=== PATIENT | female | born 1945 | race Caucasian/White ===

== ENCOUNTER → 2017-12-06 08:31 | Outpatient (CLI) | payer MEDICARE, SELFPAY | PROVIDERS: Family Provider Family Medicine; PCP Family Medicine; Visit Provider Family Medicine | DX: L03.90 Cellulitis, unspecified (principal); L02.91 Cutaneous abscess, unspecified | CPT/HCPCS: 87070; 87077; 87186; 87205 ==

== ENCOUNTER → 2018-01-08 07:20 | Outpatient (CLI) | payer MEDICARE, SELFPAY ==
[2017-11-29 15:43] VITALS: BP 153/76; PULSE 66; RESP 18; TEMP 36.6; O2SAT 96; BMI 40.5
--- NOTE | 2017-11-29 15:49 | EKG12_ITS ---
Test Reason : Blood Pressure : / mmHG Vent. Rate : 061 BPM Atrial Rate : 061 BPM P-R Int : 174 ms QRS Dur : 084 ms QT Int : 432 ms P-R-T Axes : 009 -02 036 degrees QTc Int : 434 ms Normal sinus rhythm Normal ECG Confirmed by ROBERT HOFFMAN, SOLA ([id number]), medical editor MAXX HUTCHINSON ([id number] on 11/30/2017 11:04:23 AM Referred By: ARIANA Confirmed By:SOLA JONES MD
[2017-11-29 17:19] LABS: Absolute Lymphocyte Count 2.46 X10^3/ul (0.83-4.51); Absolute Neutrophil Count 2.9 X10^3/uL (2.0-7.7); Basophil# 0.06 X10^3/uL; Eosinophils% 3.2 % (0-5); Hematocrit 41.8 % (37-47); Hemoglobin 13.3 g/dl (12.0-15.0); Lymphocyte # 2.46 X10^3/ul (4.0); Lymphocyte % 39.4 % (19-41); Mean Corp Hgb Conc 31.8 g/gl (32-36); Mean Corpuscular Hgb 29.1 pg (27.0-32.0); Mean Corpuscular Volume 91.5 fL (81-99); Mean Platelet Vol. 10.8 fl (6.2-12.0); Monocyte# 0.62 X10^3/uL; Monocyte% 9.9 % (0-10); Neutrophil # 2.91 X10^3/uL (2.7-7.7); Neutrophil % 46.5 % (47-70); Platelet Count 265 K/mm3 (150-450); RBC Distribution Width CV 13.4 % (11.6-14.6); RBC Distribution Width SD 44.3 fl (35.1-43.9); Red Blood Count 4.57 M/mm3 (4.2-5.4); White Blood Count 6.3 K/mm3 (4.4-11.0)
[2017-11-29 17:20] LABS: POSITIVE COUNT NO; POSITIVE DIFFERENTIAL NO; POSITIVE MORPHOLOGY NO
[2017-11-29 17:25] LABS: Anion Gap 6 (5-15); BUN 17 mg/dL (7-18); BUN/Creat Ratio 22.2 RATIO (10-20); Calcium,Total 9.3 mg/dL (8.5-10.1); Chloride 106 mmol/L (98-107); Creatinine, Serum 0.77 mg/dL (0.55-1.02); EST Glomerular Filtration Rate 79 mL/min (>60); Est Glom Filt Rate - Afr Amer 95 mL/min (>60); Estimated Creatinine Clearance 50.18 ml/min; Glucose 85 mg/dL (74-106); Potassium 4.1 mmol/L (3.5-5.1); Sodium Level 143 mmol/L (136-145)
== END ==
PROVIDERS: Family Provider Family Medicine; PCP Family Medicine; Visit Provider Orthopaedic Surgery
DX: Z01.810 Encounter for preprocedural cardiovascular examination (principal); Z01.812 Encounter for preprocedural laboratory examination
CPT/HCPCS: 80048; 85025; 87077; 87081; 93005

== ENCOUNTER → 2018-02-08 09:05 | Outpatient (CLI) | payer MEDICARE, SELFPAY ==
[2018-02-08 10:42] LABS: Anion Gap 6 (5-15); BUN 17 mg/dL (7-18); BUN/Creat Ratio 21.1 RATIO (10-20); Calcium,Total 9.2 mg/dL (8.5-10.1); Chloride 107 mmol/L (98-107); Cholesterol 163 mg/dL (200); EST Glomerular Filtration Rate 74 mL/min (>60); Est Glom Filt Rate - Afr Amer 90 mL/min (>60); Glucose 83 mg/dL (74-106); High Density Lipoprotein 58 mg/dL; Potassium 3.8 mmol/L (3.5-5.1); Sodium Level 144 mmol/L (136-145); Triglycerides 226 mg/dL; Very Low Density Lipoprotein 45 mg/dL (5-40)
== END ==
PROVIDERS: Family Provider Family Medicine; PCP Family Medicine; Visit Provider Family Medicine
DX: I10 Essential (primary) hypertension (principal)
CPT/HCPCS: 36415; 80048; 80061

== ENCOUNTER 2018-02-20 05:26 | Inpatient (IN) | payer MEDICARE, SELFPAY ==
[2018-02-08 13:17] VITALS: BP 155/77; PULSE 70; RESP 17; TEMP 36.8; O2SAT 98; BMI 42.9
[2018-02-08 14:07] LABS: Prothrombin Time (Protime)PT. 13.4 SECONDS (11.7-14.9)
[2018-02-08 14:08] LABS: Absolute Lymphocyte Count 1.89 X10^3/ul (0.83-4.51); Basophil# 0.06 X10^3/uL; Basophil% 1.1 % (0-1); Eosinophil# 0.27 X10^3/uL; Eosinophils% 4.8 % (0-5); Hematocrit 39.8 % (37-47); Hemoglobin 12.5 g/dl (12.0-15.0); Lymphocyte # 1.89 X10^3/ul (4.0); Lymphocyte % 33.9 % (19-41); Mean Corp Hgb Conc 31.4 g/gl (32-36); Mean Corpuscular Hgb 28.7 pg (27.0-32.0); Mean Corpuscular Volume 91.5 fL (81-99); Mean Platelet Vol. 10.9 fl (6.2-12.0); Monocyte# 0.36 X10^3/uL; Monocyte% 6.5 % (0-10); Neutrophil % 53.7 % (47-70); POSITIVE COUNT NO; POSITIVE DIFFERENTIAL NO; POSITIVE MORPHOLOGY NO; Platelet Count 265 K/mm3 (150-450); RBC Distribution Width CV 14.3 % (11.6-14.6); RBC Distribution Width SD 48.4 fl (35.1-43.9); Red Blood Count 4.35 M/mm3 (4.2-5.4); White Blood Count 5.6 K/mm3 (4.4-11.0)
[2018-02-08 14:28] LABS: AST(SGOT) 22 U/L (15-37); Alanine Aminotransfer ALT/SGPT 21 U/L (13-56); Albumin, Serum 3.7 g/dL (3.2-5.0); Alkaline Phosphatase 87 U/L (45-117); Bilirubin, Direct 0.12 mg/dL (0.00-0.30); Globulin 3.5 g/dL (2.2-4.2); Protein, Total 7.2 g/dL (6.4-8.2)
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
--- NOTE | 2018-02-18 15:54 | CASEMGMT ---
RN GRECIA attempted to complete preop call at this time. No answer, voice message left with return contact information. Per PAT assessment patient would like placement for rehab. RN GRECIA will update regarding referral. CM will follow-up with patient after surgery.
[2018-02-20] VITALS (17 sets, daily range): BP systolic 119–168; BP diastolic 55–81; PULSE 46–78; RESP 14–20; TEMP 35.8–36.6; O2SAT 95–100; BMI 42.9
[2018-02-20] MEDS: Lactated Ringers 1,000 ML 999 ML IV (06:10)
[2018-02-20] MEDS: Acetaminophen 500 MG Tablet 1000 MG PO ×3 (06:35→20:48)
[2018-02-20] MEDS: oxyCODONE HCl Cr 10 MG Tablet PO (06:35)
--- NOTE | 2018-02-20 07:36 | PCM.OPRPT ---
Report of Operation Date of Procedure: 02/20/18 Pre-Operative Diagnosis: Left hip primary OA Post-Operative Diagnosis: Left hip primary OA Surgery/Procedure Performed:: Left direct anterior Hip replacment Description of Surgical Findings:: stable hip with equal leg lengths certified registered nurse anesthetist: Quyen Camilo Anesthesiologist: Davi Rivera Special Medications: 2 g Ancef, 1 g TXA at incision, 1 g TXA closure, 10 mg Decadron, joint cocktail (5 mg Duramorph, 30 mL of 0.5% Ropivicaine, 1000 units of epinephrine, 30 mg of Toradol) Specimen's removed: Bony cuts Estimated Blood Loss (mL): 300 Fluids Replaced: 800 ml Description of Procedure: Components used: 1. Accolade 2 [facility] femoral stem size 7, 132? neck angle 2. [facility] trident acetabular shell size 52 mm 3. Stanislaw X3 polyethylene E 4. Stanislaw Biolox delta 36mm, -5mm femoral head Brief history operative indications: 72 yo f who failed conservative measures for their hip osteoarthritis. X-rays were consistent with osteoarthritis including joint space narrowing, osteophyte formation and subchondral cysts. Total hip replacement was discussed with the patient with risks and benefits including but not limited to blood loss, DVTs, PEs, neurovascular damage, dislocation, general risks of anesthesia including loss of life. Patient demonstrated an understanding medical clearance is obtained the patient was consented for surgery. Procedure: On the date of procedure the patient's L hip was marked in the preoperative area. Patient was then taken back to the operating room where anesthesia assumed control of the C-spine and airway and administered anesthetic. Patient was transferred to the operating table and placed in the supine position. The hips were placed at the break of the bed and a sacral bump was placed. The L lower extremity was then prepped out in a sterile fashion using chlorhexidine while the surgeon scrubbed. The PA was vital in the positioning of the patient. Upon reentering the room the L lower extremity was draped in the standard orthopedic fashion and the incision was marked. A timeout was called and everyone agreed upon the side, the site, the procedure be performed, antibody given, and patient's identity. At this time incision was made through skin, subcutaneous tissue, and fat down to fascia. The fascia was then incised and the TFL was retracted laterally. A retractor was placed on the lateral border of the femoral neck. Attention was directed to the inferior portion of the approach and all crossing vessels were identified and appropriately coagulated. A retractor was then placed on the medial portion of the femoral neck. The anterior capsule was then cleared of all soft tissue and then H shaped capsulotomy was made. The retractors were then placed inside the capsule. The femoral neck was identified and a cleanup cut was made. At this time a power corkscrew was used to remove the femoral head. Attention was then turned toward the acetabulum where the soft tissues were appropriately retracted and the acetabulum was sequentially reamed to 51 mm. A 52 mm cup was then selected and impacted into place. Acetabular liner was impacted into place and locking mechanism was verified. The position of the acetabular cup was then verified under live fluoroscopy. Attention was then turned to the femur. Soft tissue releases on the medial and lateral femoral neck were appropriately done, the leg was externally rotated and lateralized. A Glover retractor was placed medially and proximally to the greater trochanter this allowed appropriate visualization and exposure of the femoral canal. Rongeour was then used to remove excess lateral bone. A canal finder and entry broach were used to open the proximal canal. Once we verified we were down the femoral canal we subsequently broached up to a size 7 femur. The appropriate neck was placed in the previously selected head was trialed with a -5 mm neck. Traction was pulled and the hip was reduced with internal rotation. Once it was appropriately reduced and stability was checked. There was minimal shuck, equal leg lengths and appropriate stability with hyperextension and external rotation as well as with 90? flexion and internal rotation. Fluoroscopy was then also used to verify the position of the components and leg lengths using the contralateral side for comparison. The trial components were then dislocated the proximal femur was again exposed and the components were removed from the wound. The final components were verified and opened. The wound was copiously irrigated out with normal saline. The acetabulum was checked for any residual debris. The final components were placed and impacted. Traction and internal rotation were again used to reduce the hip. After adequate reduction the hip remained stable with appropriate leg lengths. The final components were once again checked with live fluoroscopy and were found to be satisfactory. The wound was then copiously irrigated with normal saline once more, and hemostasis was obtained. Closure was then done using #1 Vicryl runner to close the fascia. A 2-0 vicryl interuppted sutures were used to close the subcutaneous skin. A 3-0 Monocryl and Steri-Strips were used for final skin closure. A Silverlon dressing was placed. Patient was awakened by anesthesia and transferred to the [facility]. Patient was then transferred to the PACU for recovery. Postoperative plan: Patient will get 24 hours postop antibiotics. Patient will get in-house physical therapy and will be weight-bear as tolerated. Patient will follow up in office in 2 weeks for a wound check and x-rays. Grafts/Implants Used: Stanislaw accolade 2 - Complications none - Admit VTE Documentation VTE Present on Admission: No VTE Mechan Device Prophylaxis: SCD's, Thigh High FREDDIE Hose VTE Pharm Prophylaxis ordered?: Yes
--- NOTE | 2018-02-20 11:29 | PCM.CONS.GEN ---
Problem List (1) Acute respiratory failure with hypoxia Status: Acute (2) Osteoarthritis Status: Chronic Qualifiers: Osteoarthritis location: hip Osteoarthritis type: unspecified Laterality: left Qualified Code(s): M16.12 - Unilateral primary osteoarthritis, left hip (3) Depression Status: Chronic Qualifiers: Depression Type: unspecified Qualified Code(s): F32.9 - Major depressive disorder, single episode, unspecified (4) Morbid obesity Status: Chronic (5) HTN (hypertension) Status: Chronic Qualifiers: Hypertension type: essential hypertension Qualified Code(s): I10 - Essential (primary) hypertension Reason for Consult Date of Consultation: 02/20/18 Reason for Consultation: Medical consultation, RAPID RESPONSE History of Present Illness: The patient is a 72 y/o F w/ PMHx: Morbid Obesity, SAM not using CPAP, HTN, Depression, Severe L Hip OA who presents to the [facility] on 02/20/18 for planned L THR per Dr. Flores secondary to failed conservative methods who post-operatively had notable pain in the PACU and was administered aggressive IV narcotic therapy with arrival to the floor and immediate unresponsive and hypoxic event with confirmed palpable pulse. Rapid Response immediately called. Narcan administered, RT assisted with patient oxygenation, initially 60s saturation on monitor with improvement into 100% with supplementation. Patient remained initially unresponsive despite narcan therefore prepared to give additional dose and intubation; however, patient awoke, began to breath on her own and slowly became more alert and at her baseline. Repeat assessments performed serially to assure no further narcan dosing needs unremarkable with transition to NC without issue. RAPID RESPONSE NOTE: Patient arrived at 1114 2 room from surgery with immediately obvious unresponsive status and hypoxic with no respiratory effort with pulse intact. CLUTCH ASSEMBLER immediately called with Ambu bag initiation on 100% with 3 person assist to assure appropriate airway and jaw thrust secondary to thickened neck and habitus. 0.4 mg Narcan administered and IV fluid bolus initiated. Oxygenation improved into 100% and prior to repeat dosing of Narcan and consideration of intubation patient's status improved, became alert and awake with stabilization of respiratory rate and improvement of effort. Patient transitioned to nonrebreather and eventually to nasal cannula 100%. Patient family present, son who is healthcare power of traffic law attorney and updated on condition. CLUTCH ASSEMBLER Initial Physical Examination: General: does not awaken to sternal rub, not alert, unable to answer orientation questions, in respiratory failure. Skin: normal color, turgor, no icterus, cyanosis, s/p L hip replacement, dressing in place, no drainage. HEENT: AT/NC, EOM unable to be assessed, pupils pinpoint, dry MM. Lungs: No respiratory effort, diminished BS, > bases, continued bagging, no wheezing. Heart: Mildly bradycardic with regular rhythm; no gallop, rub audible. Abdomen: soft, morbidly obese. Extremities: no cyanosis, clubbing, BL LE ankle edema, non-pitting, distal pulses intact. Neurological: does not awaken to sternal rub, not alert, unable to answer orientation questions, unable to assess CM, not moving extremities. Psychiatric: affect appears flat, unresponsive. Past Medical History Past Medical History (Chronic Problems): Chronic Problems Depression (Chronic) Morbid obesity (Chronic) Osteoarthritis (Chronic) HTN (hypertension) (Chronic) Allergies ciprofloxacin [From Cipro] Adverse Reaction (Verified 02/20/18 06:14) Other diphenhydramine [From Benadryl] Adverse Reaction (Verified 02/20/18 06:14) Other Sulfa (Sulfonamide Antibiotics) Adverse Reaction (Verified 02/20/18 06:14) Other tramadol Adverse Reaction (Verified 02/20/18 06:14) Other OFFICE CALLED PT - SAYS GETS DEPRESSED IF ON TOO LONG Home Medications: Ambulatory Orders Medication Instructions Recorded Calcium Carbonate/Vitamin D3 500 mg PO DAILY 11/29/17 [Calcium 500+D Tablet Chew] Cholecalciferol (Vitamin D3) 1,000 unit PO DAILY 11/29/17 [Vitamin D3] Clonazepam [Klonopin] 0.25 mg PO DAILY 11/29/17 Cyanocobalamin (Vitamin B-12) 5,000 mcg PO DAILY 11/29/17 [Vitamin B-12] Multivitamin/Iron/Folic Acid 1 tab PO DAILY 11/29/17 [Centrum Adults Tablet] Acetaminophen [Tylenol Extra 500 - 1,000 mg PO Q6H PRN PRN 02/08/18 Strength] Hydrochlorothiazide [Hctz] 25 mg PO DAILY 02/08/18 Vortioxetine Hydrobromide 10 mg PO DAILY 02/08/18 [Brintellix] Surgical History: - - Hernia repair, hysterectomy w/ BLTL, tonsillectomy, gastric sleeve, right knee arthroscopic surgery, right total knee replacement, left total knee replacement, cholecystectomy, bile duct intervention. Psychiatric History: Depression MEDICAL BILLING AND CODING SPECIALIST History: No pertinent MEDICAL BILLING AND CODING SPECIALIST history Lives: Alone Smoking Status: Never smoker Tobacco Use: Non-smoker Alcohol: None Drugs: None - *Family History Maternal History Items: No pertinent history Paternal History Items: No pertinent history Review of Systems Constitutional: Reports: Malaise, Weakness, Fatigue. Denies: Chills, Fever, Weight Change HEENT: Denies: Head Aches, Sinus Congestion, Sinus Drainage Cardiovascular: Denies: Chest Pain, Palpitations Respiratory: Denies: Cough, Shortness of Breath, Shortness of breath at rest, Shortness of breath upon exertion, Sputum production Gastrointestinal: Denies: Abdominal Pain, Nausea, Vomiting Genitourinary: Denies: Dysuria Musculoskeletal: Reports: Joint stiffness, Joint swelling, Joint Tenderness, Leg Pain. Denies: Joint Pain Skin: Denies: Rash, Wounds Neurological: Denies: Numbness, Tingling, Focal weakness Psychiatric: Reports: Depression. Denies: Anxiety, Homicidal Ideations, Suicidal Ideations Hematologic/ Lymphatic: Denies: Easy Bruising, Easy Bleeding Comment: ROS obtained after clinical improvement. Patient Problems: Active and Suspected Problems Acute respiratory failure with hypoxia (Acute) Subjective: Patient seated upright in the bed, no acute distress, denies any dyspnea or chest discomfort given recent acute events, stabilized. Report discomfort but given mild hypotension and recent respiratory failure aggressive narcotic therapy descalated. Objective: FOLLOWING RESOLUTION OF ACUTE HYPOXIC RESPIRATORY FAILURE: Physical Examination: General: awake, alert, oriented x 3 and cooperative, seated upright in bed in no apparent distress. Skin: normal color, turgor, no icterus, cyanosis, s/p OR w/ L hip dressing in place, no drainage. HEENT: AT/NC, EOMI, pupils improved, no longer pinpoint/PERRLA, MMM, no carotid bruits or JVD noted. Lungs: Improved, diminished bases BL, moderate effort, appropriate RR, not using any accessory muscles, no wheezing, transitioned to NC currently. Heart: Mildly bradycardic with regular rhythm; no gallop, rub audible. Abdomen: soft, morbidly obese, NTTP, ND, normal BS, no HSM; however, habitus makes examination difficult. Extremities: no cyanosis, clubbing, s/p OR w/ L hip dressing in place. Neurological: patient awake, alert, oriented x 3; cognitive function intact; pupils equally reactive to light and accomodation; cranial nerves II-XII grossly normal, moving all 4 extremities although expected severe limitation LLE secondary to recent L THR, strength severely globally decreased secondary to recent intervention and acute presentation. Psychiatric: affect appears normal, mildly anxious regarding recent events, otherwise no acute evidence of depressive feelings. - Physical Exam Vital Signs Temp Pulse Resp BP Pulse Ox 97.6 F L 65 16 129/62 H 95 02/20/18 10:46 02/20/18 10:46 02/20/18 10:46 02/20/18 10:46 02/20/18 10:46 Oxygen Flow Rate (L/min) 4 Oxygen Delivery Method Room Air Weight: 265 lb 14.04 oz Body Mass Index (BMI) 42.9 Intake and Output for Last 24 Hours 02/18/18 02/19/18 02/20/18 23:59 23:59 23:59 Intake Total 1200 / 1200 Balance 1200 / 1200 Assessment/Plan All Active Problems Acute respiratory failure with hypoxia (Acute) The patient is a 72 y/o F w/ PMHx: Morbid Obesity, SAM not using CPAP, HTN, Depression and Anxiety, Severe L Hip OA who presents to the [facility] on 02/20/18 for planned L THR per Dr. Flores secondary to failed conservative methods who post-operatively had notable pain in the PACU and was administered aggressive IV narcotic therapy with arrival to the floor and immediate unresponsive and hypoxic event. (1) Acute Hypoxic Respiratory Failure secondary to Recent Operative Anesthetics and Narcotic Therapy: As noted, rapid response called following transition from PACU to FL w/ immediately obvious unresponsive status and hypoxic with no respiratory effort with pulse intact. CLUTCH ASSEMBLER immediately called with Ambu bag initiation on 100% with 3 person assist to assure appropriate airway and jaw thrust secondary to thickened neck and habitus. 0.4 mg Narcan administered and IV fluid bolus initiated. Oxygenation improved into 100% and prior to repeat dosing of Narcan and consideration of intubation patient's status improved, became alert and awake with stabilization of respiratory rate and improvement of effort. Patient transitioned to nonrebreather and eventually to nasal cannula 100%. Discussed with Primary Service, Orthopedic Surgery and given clinical improvement, will maintain on MS on telemetry, continue close monitoring for further narcan needs, maintain on supplementation with wean as tolerated room air, ATC duoneb and PRN albuterol in the interim, HOB parameters, aggressive IS usage, CPAP q HS given SAM history, decrease IV pain regimen and encourage oral utilization, encourage OOB. Fall precautions, PT, OT, CM per Orthopedic surgery direction. (2) Severe Osteoarthritis, L Hip: Failed conservative therapies and treatments, admitted per Dr. Flores for planned L THR, post-operative pain management, bowel regimen, DVT Prophylaxis, PT/OT/CM per Orthopedic surgery discretion. (3) Morbid Obesity: Weight loss and lifestyle changes encouraged, nutrition consulted. (4) Depression and Anxiety: Continue home regimen, cautious with sedative regimen. (5) Hypertension: Home hydrochlorothiazide regimen. (6) SAM: CPAP q HS. (7) DVT prophylaxis: SCDs, ASA 81 mg BID per Orthopedic surgery discretion. (8) CODE status: Following events and patient stabilization, discussed status, confirmed HCPOA and Living will in place, she notes son is HCPOA, discussed CODE status at length including difference between FULL code, DNR-CCA and DNR-CC status and requested FULL CODE status. Advanced Care Planning Face to Face Time: 20 minutes. Critical Care Time: Patient evaluation, rapid response, treatment as noted and discussion with family required 60 additional minutes above patient consultation 70 minutes evaluation time. Code Visit Office Visits / Consults: [id number] IP Consult L5 Procedures: Other Procedure - See Report - Additional Hospitalist Billin x 1 (60 minutes) and [id number] Advanced Care Planning (20 minutes)
--- NOTE | 2018-02-20 11:49 | NURSING ---
1114 pt arrived to room from surgery via bed with no resp effort obs and pt obtunded and blueprinter and staff assist called immediately. pt hob put down and attempting to give resp via ambubag with 100% o2. good strong femoral pulse assessed per ms3 nursing. pt hard to maintain airway and jaw thrust performed per this rn and dr. chaevz. 0.4mg narcan given ivp (see blueprinter notes) and iv fluid bolus given. pt responding now and following commands. pt with return of spontaneous resperations at 1120 and spo2 100% on nrb. hr 64 and resp 18. pt a&ox3. family in room and debriefed on care and condition.
[2018-02-20] MEDS: Famotidine 20 MG Tablet PO (12:40)
[2018-02-20] MEDS: Lactated Ringers 1,000 ML 125 ML IV (12:40)
[2018-02-20] MEDS: Cefazolin 1 GM/50 ML BAG IV ×2 (16:00→23:10)
[2018-02-20] MEDS: Aspirin 81 MG TAB.CHEW PO (16:59)
[2018-02-20] MEDS: Senna/Docusate Sodium 1 Tablet 2 TABLET PO (20:50)
[2018-02-21] VITALS (12 sets, daily range): BP systolic 114–120; BP diastolic 42–53; PULSE 55–73; RESP 16–20; TEMP 36.6–37.1; O2SAT 96–99
[2018-02-21] MEDS: Lactated Ringers 1,000 ML 125 ML IV (02:06)
[2018-02-21] MEDS: Acetaminophen 500 MG Tablet 1000 MG PO ×3 (06:05→22:29)
--- NOTE | 2018-02-21 07:01 | PCM.PN.HOSP ---
Patient Problems: Active and Suspected Problems Acute respiratory failure with hypoxia (Acute) Subjective: Patient with no acute events overnight per self and per nursing report. She states she is tolerating therapy and pain is controlled. She has had no further respiratory events and is breathing well. Does admit over the last couple years she occasionally has noted herself to wheeze with increased exertion but has not noted this to her primary care physician. Patient denies fevers, chills, nausea, emesis, abdominal pain, chest pain or recurrent or worsened dyspnea. Objective: Physical Examination: General: awake, alert, oriented x 3 and cooperative, seated upright in bedside chair, in no apparent distress. Skin: normal color, turgor, no icterus, cyanosis, s/p OR w/ L hip dressing in place, no drainage. HEENT: AT/NC, EOMI, PERRLA, MMM. Lungs: Diminished bases, improved, moderate effort, upper airway sounds from forcing air out of her mouth w/ exam, no wheezing. Heart: Regular rate with regular rhythm; no gallop, rub audible. Abdomen: soft, morbidly obese, NTTP, ND, normal BS. Extremities: no cyanosis, clubbing, s/p OR w/ L hip dressing in place. Neurological: patient awake, alert, oriented x 3; cognitive function intact; pupils equally reactive to light and accomodation; cranial nerves II-XII grossly normal, moving all 4 extremities although expected limitation LLE secondary to recent L THR, strength moderately to severely globally decreased. Psychiatric: affect appears normal, no acute evidence of depressive feelings. Vitals/I&O's: Vital Signs Temp Pulse Resp BP Pulse Ox 98.0 F 57 L 16 119/52 L 98 02/21/18 02:00 02/21/18 03:00 02/21/18 03:00 02/21/18 02:00 02/21/18 02:00 Oxygen Flow Rate (L/min) 2 Oxygen Delivery Method Nasal Cannula Weight: 265 lb 14.04 oz Body Mass Index (BMI) 42.9 Intake and Output for Last 24 Hours 02/19/18 02/20/18 02/21/18 23:59 23:59 23:59 Intake Total 2240 / 2240 1590 / 1590 Balance 2240 / 2240 1590 / 1590 Current Medications Acetaminophen (Tylenol) 1,000 mg PO Q8 [facility] Last Admin: 02/20/18 20:48 Dose: 1,000 mg Aspirin (Aspirin, Baby) [address] [facility] Last Admin: 02/20/18 16:59 Dose: 81 mg Calcium/Vitamin D (Os-Dayo 500mg + D) [address] [facility] Cholecalciferol (Vitamin D) 1,[address] [facility] Clonazepam (Klonopin) 0.25 mg PO DAILY [facility] Last Admin: 02/20/18 15:09 Dose: Not Given Famotidine (Pepcid) 20 mg PO DAILY [facility] Last Admin: 02/20/18 12:40 Dose: 20 mg Hydrochlorothiazide (Hctz) 25 mg PO DAILY [facility] Last Admin: 02/20/18 17:00 Dose: Not Given Lactated Ringer's () 1,000 mls @ 125 mls/hr IV .Q8H [facility] Last Admin: 02/21/18 02:06 Dose: 125 mls/hr Ketorolac Tromethamine (Toradol) 15 mg IV Q6H PRN PRN PRN Reason: MILD-MOD PAIN (1-5/10) Stop: 02/25/18 06:46 Meloxicam (Mobic) 7.5 mg PO BID [facility] Multivitamins/Minerals (Multivitamin With Minerals) 1 tablet PO DAILY@0800 [facility] Nutritional Formula (Lactose Free) (Ensure Clear) 120 ml PO TIDCM [facility] Last Admin: 02/20/18 16:59 Dose: 120 ml Ondansetron HCl (Zofran) 4 mg IV Q8H PRN PRN PRN Reason: NAUSEA Oxycodone HCl (Oxyir) 5 - 10 mg PO Q4H PRN PRN PRN Reason: MOD-SEVERE PAIN (4-10/10) Promethazine HCl (Phenergan) 12.5 mg IM Q6H PRN PRN; Protocol PRN Reason: NAUSEA/VOMITING Senna/Docusate Sodium (Senokot-S, Afshan-Colace) 2 tablet PO BID [facility] Last Admin: 02/20/18 20:50 Dose: 2 tablet Sodium Chloride () 5 - 30 ml IV UD PRN PRN Reason: SALINE FLUSH Medical Necessity - Tobacco Use Smoking Status: Never smoker Tobacco Use: Non-smoker Assessment/Plan All Active Problems Acute respiratory failure with hypoxia (Acute) The patient is a 72 y/o F w/ PMHx: Morbid Obesity, SAM not using CPAP, HTN, Depression and Anxiety, Severe L Hip OA who presents to the [facility] on 02/20[facility]18 for planned L THR per Dr. Flores secondary to failed conservative methods who post-operatively had notable pain in the PACU and was administered aggressive IV narcotic therapy with arrival to the floor and immediate unresponsive and hypoxic event. (1) Severe Osteoarthritis, L Hip: Failed conservative therapies and treatments, admitted per Dr. Flores for planned L THR, post-operative pain management, bowel regimen, DVT Prophylaxis, PT/OT/CM per Orthopedic surgery discretion. (2) Acute Hypoxic Respiratory Failure secondary to Recent Operative Anesthetics and Narcotic Therapy: SCREENPLAY WRITER called, clinically improved after narcan administration. Following event patient transitioned to telemetry with intermittent bradycardia otherwise not marked. Transitioned to NC currently 98%, attempt to wean, encourage OOB, IS. Patient does admit to occasional wheezing over the last 2 years, but this may be upper airway sounds as she notes it similar to current, but forced breathing with examination. Will add aerosols, continue to monitor and recommend PFTs outpatient which was discussed with her to be arranged per her PCP. (3) Morbid Obesity: Weight loss and lifestyle changes encouraged, nutrition consulted. (4) Depression and Anxiety: Continue home regimen, cautious with sedative regimen. (5) Hypertension: Home hydrochlorothiazide regimen. (6) SAM: CPAP q HS. (7) DVT prophylaxis: SCDs, ASA 81 mg BID per Orthopedic surgery discretion. (8) CODE status: FULL code. Code Visit Inpatient E&M: 87244 Subs Hosp L2
[2018-02-21 07:36] LABS: Hematocrit 31.3 % (37-47); Mean Corp Hgb Conc 31.9 g/gl (32-36); Mean Corpuscular Hgb 29.6 pg (27.0-32.0); Mean Corpuscular Volume 92.6 fL (81-99); Mean Platelet Vol. 10.9 fl (6.2-12.0); Platelet Count 223 K/mm3 (150-450); RBC Distribution Width CV 13.8 % (11.6-14.6); RBC Distribution Width SD 45.6 fl (35.1-43.9); Red Blood Count 3.38 M/mm3 (4.2-5.4); White Blood Count 11.4 K/mm3 (4.4-11.0)
[2018-02-21 07:42] LABS: Scan Indicated on CBC? Y/N NO
[2018-02-21 07:51] LABS: Anion Gap 10 (5-15); BUN 19 mg/dL (7-18); BUN/Creat Ratio 27.2 RATIO (10-20); Calcium,Total 8.6 mg/dL (8.5-10.1); Chloride 105 mmol/L (98-107); EST Glomerular Filtration Rate 88 mL/min (>60); Est Glom Filt Rate - Afr Amer 106 mL/min (>60); Glucose 111 mg/dL (74-106); Potassium 4.5 mmol/L (3.5-5.1); Sodium Level 142 mmol/L (136-145)
--- NOTE | 2018-02-21 09:16 | PCA ---
pt in therapy
[2018-02-21] MEDS: Multivitamins,Ther W-Minerals Tablet 1 TABLET PO (09:42)
[2018-02-21] MEDS: Aspirin 81 MG TAB.CHEW PO ×2 (09:42→17:09)
[2018-02-21] MEDS: Calcium Carb/Vitamin D 1 TABLET Tablet PO (09:42)
[2018-02-21] MEDS: hydroCHLOROthiazide 25 MG Tablet PO (09:43)
[2018-02-21] MEDS: Famotidine 20 MG Tablet PO (09:44)
[2018-02-21] MEDS: VORTIOXETINE HYDROBROMIDE 10 MG TABLET PO (09:44)
[2018-02-21] MEDS: Senna/Docusate Sodium 1 Tablet 2 TABLET PO ×2 (09:44→22:29)
[2018-02-21] MEDS: clonazePAM 0.5 MG Tablet 0.25 MG PO (09:46)
--- NOTE | 2018-02-21 10:08 | CASEMGMT ---
Addendum entered by Gemini Palacios 02/21/18 11:37: Social Work Return call from [facility] at [facility] and they are able to accept pt. Referral information faxed and precert will be started. Plan: [facility] SN[facility], pending precert. WILVER Keating Original Note: Social Work Met with pt in room and introduced role of SW. Pt [facility] in a [facility]term [facility], in independent living. There is a SNF at this long-term [facility] called [facility] and pt is planning on going to this facility for rehab prior to returning home. Pt states she has spoke with the admission coordinator and the facility does accept pt insurance. SW explained precert will need to be obtained prior to d/c and that referral will be made at this time. Pt also states she would like to use W/C van for transport to facility. Phone call placed to [facility] at [facility], . VM left requesting return call. SW to follow up WILVER Keating
[2018-02-21] MEDS: oxyCODONE 5 MG Tablet PO ×2 (12:08→22:29)
--- NOTE | 2018-02-21 13:03 | PCA ---
PT IN THERAPY
--- NOTE | 2018-02-21 13:58 | PCM.PN.ORT ---
Patient Problems: Active and Suspected Problems Acute respiratory failure with hypoxia (Acute) Subjective: The patient was sitting in bed upon examination. Patient denies any chest pain, shortness of breath, dizziness, lightheadedness, nausea or vomiting, or calf pain. Pain is controlled on medications. No adverse overnight events. Patient has tolerated physical therapy very well. Patient did have acute respiratory failure and which Narcan was used. Medicine is on board helping with management of patient. Patient plans on going to prison facility upon discharge. Case management is involved with assistance and placement. Patient will require preauthorization. Objective: Vital signs stable and afebrile. Patient is able to plantarflex and dorsiflex actively. Sensation is intact to light touch to saphenous, sural, superficial and deep peroneal, and tibial distribution. Dressing is clean dry and intact. Negative Homans bilaterally, negative signs and symptoms of DVT. - Physical Exam General: Alert, Oriented x3, Cooperative, No apparent distress Vital Signs Temp Pulse Resp BP Pulse Ox 98.8 F 73 16 116/44 L 97 02/21/18 12:10 02/21/18 12:52 02/21/18 12:10 02/21/18 12:10 02/21/18 12:10 Oxygen Flow Rate (L/min) 2 Oxygen Delivery Method Room Air Weight: 120.6 kg Body Mass Index (BMI) 42.9 Intake and Output for Last 24 Hours 02/19/18 02/20/18 02/21/18 23:59 23:59 23:59 Intake Total 2240 / 2240 2140 / 2140 Balance 2240 / 2240 2140 / 2140 Laboratory Tests Past 24 Hrs 02/21/18 02/21/18 05:23 05:23 WBC 11.4 H RBC 3.38 L Hgb 10.0 L Hct 31.3 L MCV 92.6 MCH 29.6 MCHC 31.9 L RDW 13.8 RDW Differential 45.6 H Plt Count 223 MPV 10.9 Sodium 142 Potassium 4.5 Chloride 105 Carbon Dioxide 27.0 Anion Gap 10 BUN 19 H Creatinine 0.70 Estim Creat Clear Calc 47.60 Est GFR (MDRD) Af Amer 106 Est GFR (MDRD) Non-Af 88 BUN/Creatinine Ratio 27.2 H Glucose 111 H Calcium 8.6 Medical Necessity - Tobacco Use Smoking Status: Never smoker Tobacco Use: Non-smoker Assessment/Plan All Active Problems Acute respiratory failure with hypoxia (Acute) 1. S/P left direct anterior total hip arthroplasty POD #1 2. Continue Pain Medications: Tylenol and OxyIR 3. DVT Prophylaxis: 81 mg aspirin twice daily for DVT prophylaxis times 4 weeks 4. PT/OT: Weightbearing as tolerated 5. H & H: 10.0/31.3, asymptomatic 6. Leukocytosis: Currently 11.4, afebrile. Patient did receive Decadron intraoperatively 7. Encouraged Incentive Spirometry 8. Continue postoperative medical management per medicine: Patient did undergo acute respiratory failure secondary to operative anesthetics and narcotic therapy. Patient states she was in the past worked up for sleep apnea but has not been using any CPAP machine. Currently is at 97% on room air. 9. Disposition: Plan will be for discharge to prison facility once precertification has been obtained.
[2018-02-21] MEDS: Ipratropium/Albuterol Sulfate 3 ML AMPUL.NEB INHALATION ×2 (15:20→18:57)
[2018-02-22] VITALS (9 sets, daily range): BP systolic 102–134; BP diastolic 47–53; PULSE 60–80; RESP 14–18; TEMP 36.7–37.1; O2SAT 92–100
[2018-02-22] MEDS: oxyCODONE 5 MG Tablet PO ×3 (04:23→13:58)
[2018-02-22 05:59] LABS: Hematocrit 28.4 % (37-47); Mean Corp Hgb Conc 31.7 g/gl (32-36); Mean Corpuscular Hgb 29.7 pg (27.0-32.0); Mean Corpuscular Volume 93.7 fL (81-99); Mean Platelet Vol. 10.4 fl (6.2-12.0); Platelet Count 198 K/mm3 (150-450); RBC Distribution Width CV 14.5 % (11.6-14.6); RBC Distribution Width SD 47.9 fl (35.1-43.9); Red Blood Count 3.03 M/mm3 (4.2-5.4); White Blood Count 8.1 K/mm3 (4.4-11.0)
[2018-02-22 06:07] LABS: Scan Indicated on CBC? Y/N NO
[2018-02-22] MEDS: Acetaminophen 500 MG Tablet 1000 MG PO ×2 (06:13→13:57)
[2018-02-22] MEDS: Ipratropium/Albuterol Sulfate 3 ML AMPUL.NEB INHALATION (06:58)
--- NOTE | 2018-02-22 07:28 | PCM.PN.ORT ---
Patient Problems: Active and Suspected Problems Acute respiratory failure with hypoxia (Acute) Subjective: The patient was sitting in bedside chair upon examination. Patient denies any chest pain, shortness of breath, dizziness, lightheadedness, nausea or vomiting, or calf pain. Pain is controlled on medications. No adverse overnight events. Patient states she is having increased pain in the anterior thigh and describes it as a sharp, ache. Patient did require 2 L of oxygen overnight. Patient will be following up outpatient for pulmonary function testing and workup for sleep apnea. We are waiting pre-CERT for patient to go to alf [facility]. Objective: Vital signs stable and afebrile. Patient is able to plantarflex and dorsiflex actively. Sensation is intact to light touch to saphenous, sural, superficial and deep peroneal, and tibial distribution. Dressing is clean dry and intact. Negative Homans bilaterally, negative signs and symptoms of DVT. - Physical Exam General: Alert, Oriented x3, Cooperative, No apparent distress Vital Signs Temp Pulse Resp BP Pulse Ox 98.1 F 68 18 102/47 L 99 02/22/18 02:12 02/22/18 04:04 02/22/18 02:12 02/22/18 02:12 02/22/18 02:12 Oxygen Flow Rate (L/min) 2 Oxygen Delivery Method Nasal Cannula Weight: 120.6 kg Body Mass Index (BMI) 42.9 Intake and Output for Last 24 Hours 02/20/18 02/21/18 02/22/18 23:59 23:59 23:59 Intake Total 2240 / 2240 2690 / 2690 640 / 640 Balance 2240 / 2240 2690 / 2690 640 / 640 Laboratory Tests Past 24 Hrs 02/21/18 02/21/18 02/22/18 05:23 05:23 05:20 WBC 11.4 H 8.1 RBC 3.38 L 3.03 L Hgb 10.0 L 9.0 L Hct 31.3 L 28.4 L MCV 92.6 93.7 MCH 29.6 29.7 MCHC 31.9 L 31.7 L RDW 13.8 14.5 RDW Differential 45.6 H 47.9 H Plt Count 223 198 MPV 10.9 10.4 Sodium 142 Potassium 4.5 Chloride 105 Carbon Dioxide 27.0 Anion Gap 10 BUN 19 H Creatinine 0.70 Estim Creat Clear Calc 47.60 Est GFR (MDRD) Af Amer 106 Est GFR (MDRD) Non-Af 88 BUN/Creatinine Ratio 27.2 H Glucose 111 H Calcium 8.6 Medical Necessity - Tobacco Use Smoking Status: Never smoker Tobacco Use: Non-smoker Assessment/Plan All Active Problems Acute respiratory failure with hypoxia (Acute) 1. S/P left direct anterior total hip arthroplasty POD #2 2. Continue Pain Medications: Tylenol and OxyIR 3. DVT Prophylaxis: 81 mg aspirin twice daily for DVT prophylaxis times 4 weeks 4. PT/OT: Weightbearing as tolerated 5. H & H: 9.0/28.4, asymptomatic 6. Leukocytosis: Resolved currently 8.1, afebrile. Patient did receive Decadron intraoperatively 7. Encouraged Incentive Spirometry 8. Continue postoperative medical management per medicine: Patient did undergo acute respiratory failure secondary to operative anesthetics and narcotic therapy. Patient states she was in the past worked up for sleep apnea but has not been using any CPAP machine. Patient did require 2 L of oxygen overnight due to drop in O2 saturation. 9. Disposition: Plan will be for discharge to alf facility once precertification has been obtained. Prescriptions will be attached to chart. Patient will need to follow-up per [facility] orthopedic postop instructions. If pre-CERT is obtained today I feel patient would be okay from an orthopedic standpoint to be discharged if cleared by medicine. Patient will need to follow-up postoperatively with her primary care physician for pulmonary function testing for workup of sleep apnea.
--- NOTE | 2018-02-22 07:29 | PCM.PN.HOSP ---
Patient Problems: Active and Suspected Problems Acute respiratory failure with hypoxia (Acute) Subjective: Patient with no acute events overnight per self and per nursing report. Patient progressing well, tolerating therapies, pain controlled with narcotic therapy orally. Patient eager for transition to senior living facility but awaiting insurance approval. Patient with no further episodes of dyspnea or respiratory distress. Encourage patient again to have outpatient evaluation for possible sleep apnea and pulmonary function testing. Patient denies fevers, chills, nausea, emesis, abdominal pain, chest pain. Objective: Physical Examination: General: awake, alert, oriented x 3 and cooperative, seated upright in bedside chair, in no apparent distress. Skin: normal color, turgor, no icterus, cyanosis, s/p OR w/ L hip dressing in place, no drainage. HEENT: AT/NC, EOMI, PERRLA, MMM. Lungs: Diminished bases, improved, moderate effort, upper airway sounds from forcing air out of her mouth w/ exam, no wheezing. Heart: Regular rate with regular rhythm; no gallop, rub audible. Abdomen: soft, morbidly obese, NTTP, ND, normal BS. Extremities: no cyanosis, clubbing, s/p OR w/ L hip dressing in place. Neurological: patient awake, alert, oriented x 3; cognitive function intact; pupils equally reactive to light and accomodation; cranial nerves II-XII grossly normal, moving all 4 extremities although expected limitation LLE secondary to recent L THR, strength moderately globally decreased. Psychiatric: affect appears normal, no acute evidence of depressive feelings. Vitals/I&O's: Vital Signs Temp Pulse Resp BP Pulse Ox 98.1 F 68 18 102/47 L 99 02/22/18 02:12 02/22/18 04:04 02/22/18 02:12 02/22/18 02:12 02/22/18 02:12 Oxygen Flow Rate (L/min) 2 Oxygen Delivery Method Nasal Cannula Weight: 265 lb 14.04 oz Body Mass Index (BMI) 42.9 Intake and Output for Last 24 Hours 02/20/18 02/21/18 02/22/18 23:59 23:59 23:59 Intake Total 2240 / 2240 2690 / 2690 640 / 640 Balance 2240 / 2240 2690 / 2690 640 / 640 Laboratory Results 02/21/18 05:23: WBC 11.4 H, RBC 3.38 L, Hgb 10.0 L, Hct 31.3 L, MCV 92.6, MCH 29.6, MCHC 31.9 L, RDW 13.8, RDW Differential 45.6 H, Plt Count 223, MPV 10.9 02/21/18 05:23: Sodium 142, Potassium 4.5, Chloride 105, Carbon Dioxide 27.0, Anion Gap 10, BUN 19 H, Creatinine 0.70, Estim Creat Clear Calc 47.60, Est GFR (MDRD) Af Amer 106, Est GFR (MDRD) Non-Af 88, BUN/Creatinine Ratio 27.2 H, Glucose 111 H, Calcium 8.6 02/22/18 05:20: WBC 8.1, RBC 3.03 L, Hgb 9.0 L, Hct 28.4 L, MCV 93.7, MCH 29.7, MCHC 31.7 L, RDW 14.5, RDW Differential 47.9 H, Plt Count 198, MPV 10.4 Current Medications Acetaminophen (Tylenol) 1,000 mg PO Q8 [facility] Last Admin: 02/22/18 06:13 Dose: 1,000 mg Albuterol Sulfate (Ventolin Aerosols) 2.5 mg INHALATION Q2H PRN PRN PRN Reason: dyspnea, wheezing Albuterol/Ipratropium (Duoneb) 3 ml INHALATION Q6HWA.RT [facility] Last Admin: 02/22/18 06:58 Dose: 3 ml [facility]ir[facility], [facility]) [facility] Last Admin: 02/21/18 17:09 Dose: 81 mg Calcium/Vitamin D (Os-Dayo 500mg + D) [facility] Last Admin: 02/21/18 09:42 Dose: 1 tablet Cholecalciferol (Vitamin D) [facility] Last Admin: 02/21/18 09:42 Dose: 1,000 unit Clonazepam (Klonopin) 0.25 mg PO DAILY [facility] Last Admin: 02/21/18 09:46 Dose: 0.25 mg Famotidine (Pepcid) 20 mg PO DAILY [facility] Last Admin: 02/21/18 09:44 Dose: 20 mg Hydrochlorothiazide (Hctz) 25 mg PO DAILY [facility] Last Admin: 02/21/18 09:43 Dose: 25 mg Ketorolac Tromethamine (Toradol) 15 mg IV Q6H PRN PRN PRN Reason: MILD-MOD PAIN (1-5/10) Stop: 02/25/18 06:46 Meloxicam (Mobic) 7.5 mg PO BID [facility] Last Admin: 02/21/18 22:25 Dose: Not Given Multivitamins/Minerals (Multivitamin With Minerals) 1 tablet PO DAILY@0800 [facility] Last Admin: 02/21/18 09:42 Dose: 1 tablet Nutritional Formula (Lactose Free) (Ensure Clear) 120 ml PO TIDCM [facility] Last Admin: 02/21/18 17:09 Dose: 120 ml Ondansetron HCl (Zofran) 4 mg IV Q8H PRN PRN PRN Reason: NAUSEA Oxycodone HCl (Oxyir) 5 - 10 mg PO Q4H PRN PRN PRN Reason: MOD-SEVERE PAIN (4-10/10) Last Admin: 02/22/18 04:23 Dose: 10 mg Promethazine HCl (Phenergan) 12.5 mg IM Q6H PRN PRN; Protocol PRN Reason: NAUSEA/VOMITING Senna/Docusate Sodium (Senokot-S, Afshan-Colace) 2 tablet PO BID [facility] Last Admin: 02/21/18 22:29 Dose: 2 tablet Sodium Chloride () 5 - 30 ml IV UD PRN PRN Reason: SALINE FLUSH Medical Necessity - Tobacco Use Smoking Status: Never smoker Tobacco Use: Non-smoker Assessment/Plan All Active Problems Acute respiratory failure with hypoxia (Acute) The patient is a 72 y/o F w/ PMHx: Morbid Obesity, SAM not using CPAP, HTN, Depression and Anxiety, Severe L Hip OA who presents to the [facility] on 02/20/18 for planned L THR per Dr. Flores secondary to failed conservative methods who post-operatively had notable pain in the PACU and was administered aggressive IV narcotic therapy with arrival to the floor and immediate unresponsive and hypoxic event. (1) Severe Osteoarthritis, L Hip: Failed conservative therapies and treatments, admitted per Dr. Flores, s/p 02/20/18 L THR, post-operative pain management, bowel regimen, DVT Prophylaxis, PT/OT/CM per Orthopedic surgery discretion. Planned SNF/Rehab transition with pending insurance authorization. Post-op Hgb 21.5-->10-->02/22/18 Hgb 9.0. Patient cleared from medical team standpoint for transition to next level of care once insurance approval obtained. (2) Acute Hypoxic Respiratory Failure secondary to Recent Operative Anesthetics and Narcotic Therapy: CADASTRAL SURVEYOR called, clinically improved after narcan administration. Following event patient transitioned to telemetry with intermittent bradycardia otherwise not marked. Transitioned to NC currently 98%, attempt to wean, encourage OOB, IS. Patient does admit to occasional wheezing over the last 2 years, but this may be upper airway sounds as she notes it similar to current, but forced breathing with examination. Added aerosols, continue to monitor and recommend PFTs outpatient which was discussed with her to be arranged per her PCP. (3) Morbid Obesity: Weight loss and lifestyle changes encouraged, nutrition consulted. (4) Depression and Anxiety: Continue home regimen, cautious with sedative regimen. (5) Hypertension: Home hydrochlorothiazide regimen. (6) SAM: CPAP q HS. (7) DVT prophylaxis: SCDs, ASA 81 mg BID per Orthopedic surgery discretion x 4 weeks duration. (8) CODE status: FULL code. Code Visit Inpatient E&M: 96680 Subs Hosp L2
--- NOTE | 2018-02-22 07:37 | PCM.DC.THR ---
Discharge Diet: No Restrictions Discharge Activity: May Not Drive - while taking narcotic pain medications. May shower in (days): 1 - Turned dressing away from water Ice area for (Minutes): 20 - Every 1-2 hours while awake Weight Bearing Status: Weight bearing as tolerated Elevate: Operative Extremity Additional Activity Instructions:: Wear elastic stockings for 2 weeks. DO NOT use alcohol with narcotic pain medication. DO NOT make important decisions while taking narcotic medication. If you have problems with taking your medication (rash, itching, nausea, etc.) call the office at once. Call your doctor if your incision/area has: Increased Pain/ Swelling, Increased Redness, Foul Smelling Discharge Call your doctor if you observe: Fever of 101 or Higher Remove Dressing in (days):: 3 - Okay to remove dressing on February 25, 2018 Additional Instructions: Follow [facility] orthopedic and postop instructions Allergies/Adverse Reactions: Allergies ciprofloxacin [From Cipro] Adverse Reaction (Verified 02/20/18 06:14) Other diphenhydramine [From Benadryl] Adverse Reaction (Verified 02/20/18 06:14) Other Sulfa (Sulfonamide Antibiotics) Adverse Reaction (Verified 02/20/18 06:14) Other tramadol Adverse Reaction (Verified 02/20/18 06:14) Other OFFICE CALLED PT - SAYS GETS DEPRESSED IF ON TOO LONG Medications to take at Discharge Calcium Carbonate/Vitamin D3 [Calcium 500+D Tablet Chew] 500 mg PO DAILY 11/29/17 Cholecalciferol (Vitamin D3) [Vitamin D3] 1,000 unit PO DAILY 11/29/17 Clonazepam [Klonopin] 0.25 mg PO DAILY 11/29/17 Cyanocobalamin (Vitamin B-12) [Vitamin B-12] 5,000 mcg PO DAILY 11/29/17 Multivitamin/Iron/Folic Acid [Centrum Adults Tablet] 1 tab PO DAILY 11/29/17 Hydrochlorothiazide [Hctz] 25 mg PO DAILY 02/08/18 Vortioxetine Hydrobromide [Trintellix] 10 mg PO DAILY 02/08/18 Acetaminophen [Tylenol] 1,000 mg PO Q8 #90 tab 02/22/18 Aspirin [Aspirin, Baby] 81 mg PO BIDCM #60 tab.chew 02/22/18 Famotidine [Pepcid] 20 mg PO DAILY #30 tab 02/22/18 Meloxicam [Mobic] 7.5 mg PO BID 14 Days #30 tab 02/22/18 Oxycodone [Oxyir] 5 - 10 mg PO Q4H PRN PRN 5 Days #60 tab 02/22/18 The following prescriptions were given: Oxycodone [Oxyir] 5 - 10 mg PO Q4H PRN PRN 5 Days #60 tab PRN Reason: Mod-Severe Pain (4-10) Acetaminophen [Tylenol] 1,000 mg PO Q8 #90 tab Famotidine [Pepcid] 20 mg PO DAILY #30 tab Aspirin [Aspirin, Baby] 81 mg PO BIDCM #60 tab.chew Meloxicam [Mobic] 7.5 mg PO BID 14 Days #30 tab Primary Care Physician: Duncan Christianson MD [Primary Care Provider] - Please follow up with your Primary Care Physician in: follow up in 1-2 weeks with PCP for workup of sleep apnea and PFT's Test Results: Test results from this visit will be discussed in further detail at your follow-up appointment, if applicable. Please Follow Up With: Meek Saldana PA-C When: 03/06/18 @ 9:30 am
[2018-02-22] MEDS: Calcium Carb/Vitamin D 1 TABLET Tablet PO (08:17)
[2018-02-22] MEDS: Aspirin 81 MG TAB.CHEW PO (08:17)
[2018-02-22] MEDS: Multivitamins,Ther W-Minerals Tablet 1 TABLET PO (08:17)
[2018-02-22] MEDS: Senna/Docusate Sodium 1 Tablet 2 TABLET PO (08:18)
[2018-02-22] MEDS: Famotidine 20 MG Tablet PO (08:18)
[2018-02-22] MEDS: hydroCHLOROthiazide 25 MG Tablet PO (08:18)
[2018-02-22] MEDS: VORTIOXETINE HYDROBROMIDE 10 MG TABLET PO (08:19)
[2018-02-22] MEDS: clonazePAM 0.5 MG Tablet 0.25 MG PO (08:26)
--- NOTE | 2018-02-22 11:31 | CASEMGMT ---
Social Work Note SW received message from Estela at [facility] stating that she has received pre-cert. Pietro CHOPRA and Dr. Denia Wang updated of this. Per Petty pt is able to discharge today. LUCINA faxed completed discharge paperwork to Estela at [facility] including transfer to extended care facility, signed medication list and any scripts. Originals in SNF folder and copy on pt's chart. LUCINA placed a call to [facility] and [facility] who are both unable to transport pt. SW in to update pt of this. Pt states that her son will be transporting pt once he arrives at [facility]. Pt states that her son will be in later this afternoon to transport pt. LUCINA completed [facility] in [place]. Originals in SNF and copy on pt's chart. LUCINA placed a call to Estela and left her a message informing her that pt's son will be in later today and will be transporting pt. LUCINA updated HAILEY Howard of this as well. Plan: Pt to discharge to [facility] today for rehabilitation under skilled with pt's son transporting. Juliette Grant [employer] HEL[employer], ANNUAL GIVING OFFICER
--- NOTE | 2018-02-22 14:42 | NURSING ---
report called to Eleazar at [facility]. aware that son is transporting patient.
== END 2018-02-22 14:25 | disposition skilled nursing facility (03) | DRG 469 ==
LOC: ACINP 05:27 → MS3 08:21
PROVIDERS: Admitting Provider Specialist; Family Provider Family Medicine; PCP Family Medicine; Visit Provider Specialist
PROC: 0SRB04A Replacement of Left Hip Joint with Ceramic on Polyethylene Synthetic Substitute, Uncemented, Open Approach (ICD-10-PCS; CPT 27284; principal; 2018-02-20 07:10)
DX: M16.12 Unilateral primary osteoarthritis, left hip (principal); J96.01 Acute respiratory failure with hypoxia; Z68.41 Body mass index [BMI] 40.0-44.9, adult; E66.01 Morbid (severe) obesity due to excess calories; T41.205A Adverse effect of unspecified general anesthetics, initial encounter; T40.605A Adverse effect of unspecified narcotics, initial encounter; Y92.239 Unspecified place in hospital as the place of occurrence of the external cause; I10 Essential (primary) hypertension; Z98.84 Bariatric surgery status; G47.33 Obstructive sleep apnea (adult) (pediatric); F32.9 Major depressive disorder, single episode, unspecified; F41.9 Anxiety disorder, unspecified
CPT/HCPCS: 36415; 73501; 73502; 76000; 80048; 80076; 85025; 85027; 85610; 87081; 94640; 94762; 97110; 97116; 97162; 97166; 97530; 99251; C1776; J7040; J7120; G0463; J0153; J2310; J2405

== ENCOUNTER → 2018-03-22 11:34 | Outpatient (CLI) | payer MEDICARE, SELFPAY ==
[2018-03-22 13:54] LABS: Absolute Lymphocyte Count 2.09 X10^3/ul (0.83-4.51); Absolute Neutrophil Count 3.4 X10^3/uL (2.0-7.7); Basophil# 0.07 X10^3/uL; Basophil% 1.1 % (0-1); Eosinophils% 4.8 % (0-5); Hematocrit 37.3 % (37-47); Hemoglobin 11.6 g/dl (12.0-15.0); Lymphocyte # 2.09 X10^3/ul (4.0); Lymphocyte % 33.3 % (19-41); Mean Corp Hgb Conc 31.1 g/gl (32-36); Mean Corpuscular Hgb 29.2 pg (27.0-32.0); Mean Platelet Vol. 10.5 fl (6.2-12.0); Monocyte# 0.45 X10^3/uL; Monocyte% 7.2 % (0-10); Neutrophil # 3.36 X10^3/uL (2.7-7.7); Neutrophil % 53.6 % (47-70); POSITIVE COUNT NO; POSITIVE DIFFERENTIAL NO; POSITIVE MORPHOLOGY NO; Platelet Count 372 K/mm3 (150-450); RBC Distribution Width CV 13.4 % (11.6-14.6); RBC Distribution Width SD 44.4 fl (35.1-43.9); Red Blood Count 3.97 M/mm3 (4.2-5.4); White Blood Count 6.3 K/mm3 (4.4-11.0)
== END ==
PROVIDERS: Family Provider Family Medicine; PCP Family Medicine; Visit Provider Family Medicine
DX: D64.9 Anemia, unspecified (principal)
CPT/HCPCS: 36415; 85025

== ENCOUNTER → 2018-06-05 18:17 | Outpatient (CLI) | payer MEDICARE, SELFPAY ==
--- OUTSIDE RECORDS SUMMARY | 2018-08-01 03:21 | XMS RPT_ITS ---
:1945 Author Organization OHIP Support Name Relationship Address Phone DUNCAN VELÁZQUEZ Unavailable [address] + [place] [address] R Unavailable Unavailable Unavailable DUNCAN VELÁZQUEZ Unavailable [address] + [place] [address] R Unavailable Unavailable Unavailable DUNCAN VELÁZQUEZ Unavailable [address] [facility] [address] [place] [address] DUNCAN VELÁZQUEZ Unavailable [address] + [place] [address] R Unavailable Unavailable Unavailable DUNCAN VELÁZQUEZ Unavailable [address] + [place] [address] R Unavailable Unavailable Unavailable DUNCAN VELÁZQUEZ Unavailable [address] + [place] [address] R Unavailable Unavailable Unavailable DUNCAN VELÁZQUEZ Unavailable [address] + [place] [address] R Unavailable Unavailable Unavailable DUNCAN VELÁZQUEZ Unavailable [address] + [place] [address] R Unavailable Unavailable Unavailable DUNCAN VELÁZQUEZ Unavailable [address] + [place] [address] R Unavailable Unavailable Unavailable DUNCAN VELÁZQUEZ Unavailable [address] + [place] [address] R Unavailable Unavailable Unavailable DUNCAN VELÁZQUEZ Unavailable [address] + [place] [address] R Unavailable Unavailable Unavailable DUNCAN VELÁZQUEZ Unavailable [address] + [place] [address] R Unavailable Unavailable Unavailable Care Team Providers Name Role Phone Duncan Christianson Attending Unavailable Mega, Jose M Admitting Unavailable Mega, Jose M Attending Unavailable Christianson, Duncan Primary Care Unavailable Christianson, Duncan Attending Unavailable Christianson, Duncan Primary Care Unavailable Moodisparudy, Duncan Attending Unavailable Mega, Jose M Referring Unavailable Sandra, Cecilio Admitting Unavailable Sandra, Cecilio Attending Unavailable Sandra, Cecilio Referring Unavailable Christianson, Duncan Primary Care Unavailable White, Denia Consulting Unavailable Christianson, Duncan Attending Unavailable Christianson, Duncan Primary Care Unavailable Sandra, Cecilio Admitting Unavailable White, Denia Attending Unavailable Sandra, Cecilio Referring Unavailable Christianson, Duncan Primary Care Unavailable White, Denia Consulting Unavailable Sandra, Cecilio Consulting Unavailable Sandra, Cecilio Admitting Unavailable White, Denia Attending Unavailable Sandra, Cecilio Referring Unavailable Christianson, Duncan Primary Care Unavailable White, Denia Consulting Unavailable Sandra, Cecilio Consulting Unavailable Sadnra, Cecilio Admitting Unavailable White, Denia Attending Unavailable Sandra, Cecilio Referring Unavailable Christianson, Duncan Primary Care Unavailable White, Denia Consulting Unavailable Sandra, Cecilio Consulting Unavailable Christianson, Duncan Attending Unavailable Christianson, Duncan Primary Care Unavailable KoplinWindy LAUNDRY TUB MAKER Attending Unavailable Christianson, Duncan Primary Care Unavailable Christianson, Duncan Attending Unavailable Christianson, Duncan Primary Care Unavailable PROBLEMS PROBLEMS DATE TYPE CONDITION / CODE ATTENDING STATUS SOURCE 06/12/2018 Unknown G47.33 - Obstructive KoWindy hernández Active [facility] sleep apnea (adult) LAUNDRY TUB MAKER Community (pediatric[facility] / Hospital G47.33(ICD-10) Repository 02/28/2018 Unknown M16.12 - Unilateral Sandra Cecilio Active [facility] primary Community osteoarthritis, left Hospital hip / M16.12(ICD-10) Repository 02/22/2018 Unknown Z96.642 - Presence Denia Wang Active [facility] of left artificial Community hip joint / Hospital Z96.642(ICD-10) Repository 02/08/2018 Unknown I10 - Essential ChristiansonDuncan bahena Active [facility] (primary) Community hypertension / Hospital I10(ICD-10) Repository 01/11/2018 Unknown Z01.810 - Encounter Duncan Jones Active [facility] for preprocedural [facility] cardiovascular Hospital examination / Repository Z01.810(ICD-10) PROCEDURES PROCEDURES No Procedure Records FoundRESULTS RESULTS Observed: 06/05/2018 Status: F Source: [facility] CULTURE, URINE 4:00 PM [facility] REPOSITORY Urine Culture ORGANISM 1: Presumptive E. coli Brielle Count >100,000 Presumptive E. coli: REACTION Amoxacillin/Clavulanic Acid $ 4 S Ampicillin $ >=32 R Ampicillin/Sulbactam $ 16 I Cefazolin $ <=4 S Cefepime $ <=1 S Ceftriaxone $ <=1 S Ciprofloxacin $ <=0.25 S ESBL - Ertapenim $$$ <=0.5 S Gentamicin $ <=1 S Imipenem *NF <=0.25 S Levofloxacin $ <=0.12 S Nitrofurantoin $ <=16 S Piperacillin/Tazobactam $$ <=4 S Tobramycin $ <=1 S Trimethoprim/Sulfametho $ <=20 S (NF) indicates non-formulary drug at [facility]. Approval by Infectious Disease Specialist required before non-formulary drugs may be ordered and/or dispensed. Performed By: #### M100.0650 #### [facility] [address] [place], [place], [address] SCREENING MONSERRAT-BILAT Observed: 06/05/2018 Status: F Source: [place] 7:32 [facility] REPOSITORY TONEY ROGER Female [id number] Ordering physician: Duncan Christianson LOC:MAMMO [id number] Attending physician: Duncan Christianson 1945 72 DOS: 06/05/18 Acc#: [id number] Exam/Proc: SCREENING MONSERRAT-BILAT Dept: MAMMO #[id number] - MAMMOGRAM.STOMB BILATERAL DIGITAL SCREENING MAMMOGRAM 3D/2D WITH CAD: 06/05/2018 CLINICAL: Routine screening. Comparison is made to exams dated: 05/24/2016 mammogram - [facility] and 11/12/2012 mammogram - [facility]. Direct digital imaging performed according to protocol with recording of images. This exam was performed with the benefit of Computer Aided Detection (CAD). There are scattered fibroglandular elements in both breasts. There are benign scattered calcifications in the right breast. There also is a benign calcification in the left breast. No significant masses, calcifications, or other findings are seen in either breast. There has been no significant interval change. IMPRESSION: BENIGN There is no mammographic evidence of malignancy. A 1 year screening mammogram is recommended. Cecilio Palacios M.D. sd/penrad:06/05/2018 13:33:09 Computer Architect: Mrs. Randa Cornelius RT(R)(M), [facility] letter sent: NormalExam/BI-RADS 1-2 Mammogram BI-RADS: 2 Benign REPORT SIGNATURE ON FILE Electronically Signed Date/Time: 06/05/18 1333 Dictated Date/time: 06/05/18 0732 CC: CBC W/DIFF, AUTOMATED Collected: 03/22/2018 Status: F Source: [place] 11:36 AM [facility] REPOSITORY TYPE CODE TESTS RESULT OUT OF RANGE REFERENCE UNITS LAB L100.1000 4.4-11.0 K/mm3 Normal WBC 6.3 LAB L100.1200 4.2-5.4 M/mm3 Low RBC 3.97 LAB L100.1300 12.0-15.0 g/dl Low HGB 11.6 LAB L100.1400 37-47 % Normal HCT 37.3 LAB L100.1500 81-99 fL Normal MCV 94.0 LAB L100.1600 27.0-32.0 pg Normal MCH 29.2 LAB L100.1700 32-36 g/gl Low MCHC 31.1 LAB L100.1810 11.6-14.6 % Normal RDW CV 13.4 LAB L100.1820 35.1-43.9 fl High RDW SD 44.4 LAB L100.1900 150-450 K/mm3 Normal PLT 372 LAB L100.2000 6.2-12.0 fl Normal MPV 10.5 LAB L100.2100 47-70 % Normal NEUT% 53.6 LAB L100.2200 19-41 % Normal LY% 33.3 LAB L100.2300 0-10 % Normal MONO% 7.2 LAB L100.2400 0-5 % Normal EO% 4.8 LAB L100.2500 0-1 % High BASO% 1.1 LAB L100.2550 0.0-0.9 % Normal IM GRAN % 0.000 Result Comment: IG% - Immature Granulocytes (promyelocytes, myelocytes and metamyelocytes) > 1% indicates that a LEFT SHIFT is Present. LAB L100.2620 2.0-7.7 X10 3/uL Normal Absolute Neut 3.4 LAB L100.2720 0.83-4.51 X10 3/ul Normal Absolute Lymph 2.09 Performed By: #### L100.0100 #### [facility] [address] [facility] [place], [address] DISCHARGE INSTRUCTION Observed: 02/22/2018 Status: F Source: [place] 11:47 AM [facility] REPOSITORY [facility] Medical Records Department [address] [place] [address] Instructions for Home/Discharge Instructions 02/22/18 0737 MR#: [id number] Acct: [id number] Name: TONEY ROGER Rep #: [id number] : 1945 72 From: Meek Saldana PA-C PCP: Duncan Christianson MD Status: ADM IN Discharge Diet: No Restrictions Discharge Activity: May Not Drive - while taking narcotic pain medications. May shower in (days): 1 - Turned dressing away from water Ice area for (Minutes): 20 - Every 1-2 hours while awake Weight Bearing Status: Weight bearing as tolerated Elevate: Operative Extremity Additional Activity Instructions:: Wear elastic stockings for 2 weeks. DO NOT use alcohol with narcotic pain medication. DO NOT make important decisions while taking narcotic medication. If you have problems with taking your medication (rash, itching, nausea, etc.) call the office at once. Call your doctor if your incision/area has: Increased Pain/ Swelling, Increased Redness, Foul Smelling Discharge Call your doctor if you observe: Fever of 101 or Higher Remove Dressing in (days):: 3 - Okay to remove dressing on February 25, 2018 Additional Instructions: Follow [facility] orthopedic and postop instructions Allergies/Adverse Reactions: Allergies ciprofloxacin [From Cipro] Adverse Reaction (Verified 02/20/18 06:14) Other diphenhydramine [From Benadryl] Adverse Reaction (Verified 02/20/18 06:14) Other Sulfa (Sulfonamide Antibiotics) Adverse Reaction (Verified 02/20/18 06:14) Other tramadol Adverse Reaction (Verified 02/20/18 06:14) Other OFFICE CALLED PT - SAYS GETS DEPRESSED IF ON TOO LONG Medications to take at Discharge Calcium Carbonate/Vitamin D3 [Calcium 500+D Tablet Chew] 500 mg PO DAILY 11/29/17 Cholecalciferol (Vitamin D3) [Vitamin D3] 1,000 unit PO DAILY 11/29/17 Clonazepam [Klonopin] 0.25 mg PO DAILY 11/29/17 Cyanocobalamin (Vitamin B-12) [Vitamin B-12] 5,000 mcg PO DAILY 11/29/17 Multivitamin/Iron/Folic Acid [Centrum Adults Tablet] 1 tab PO DAILY 11/29/17 Hydrochlorothiazide [Hctz] 25 mg PO DAILY 02/08/18 Vortioxetine Hydrobromide [Trintellix] 10 mg PO DAILY 02/08/18 Acetaminophen [Tylenol] 1,000 mg PO Q8 #90 tab 02/22/18 Aspirin [Aspirin, Baby] 81 mg PO BIDCM #60 tab.chew 02/22/18 Famotidine [Pepcid] 20 mg PO DAILY #30 tab 02/22/18 Meloxicam [Mobic] 7.5 mg PO BID 14 Days #30 tab 02/22/18 Oxycodone [Oxyir] 5 - 10 mg PO Q4H PRN PRN 5 Days #60 tab 02/22/18 The following prescriptions were given: Oxycodone [Oxyir] 5 - 10 mg PO Q4H PRN PRN 5 Days #60 tab PRN Reason: Mod-Severe Pain (4-10/10) Acetaminophen [Tylenol] 1,000 mg PO Q8 #90 tab Famotidine [Pepcid] 20 mg PO DAILY #30 tab Aspirin [Aspirin, Baby] 81 mg PO BIDCM #60 tab.chew Meloxicam [Mobic] 7.5 mg PO BID 14 Days #30 tab Primary Care Physician: Duncan Christianson MD [Primary Care Provider] - Please follow up with your Primary Care Physician in: follow up in 1-2 weeks with PCP for workup of sleep apnea and PFT's Test Results: Test results from this visit will be discussed in further detail at your follow-up appointment, if applicable. Please Follow Up With: Meek Saldana PA-C When: 03/06/18 @ 9:30 am 02/22/18 1147 <Electronically signed by Meek Saldana PA-C> Date Meek Saldana PA-C CC: Denia Wang; Duncan Christianson MD CBC-COMPLETE BLOOD CNT Collected: 02/22/2018 Status: F Source: [place] NO DIFF 5:20 AM [facility] REPOSITORY TYPE CODE TESTS RESULT OUT OF RANGE REFERENCE UNITS LAB L100.1000 4.4-11.0 K/mm3 Normal WBC 8.1 LAB L100.1200 4.2-5.4 M/mm3 Low RBC 3.03 LAB L100.1300 12.0-15.0 g/dl Low HGB 9.0 LAB L100.1400 37-47 % Low HCT 28.4 LAB L100.1500 81-99 fL Normal MCV 93.7 LAB L100.1600 27.0-32.0 pg Normal MCH 29.7 LAB L100.1700 32-36 g/gl Low MCHC 31.7 LAB L100.1810 11.6-14.6 % Normal RDW CV 14.5 LAB L100.1820 35.1-43.9 fl High RDW SD 47.9 LAB L100.1900 150-450 K/mm3 Normal PLT 198 LAB L100.2000 6.2-12.0 fl Normal MPV 10.4 Performed By: #### L100.0500 #### [facility] [address] [place], [address] CBC-COMPLETE BLOOD CNT Collected: 02/21/2018 Status: F Source: [place] NO DIFF 5:23 AM [facility] REPOSITORY TYPE CODE TESTS RESULT OUT OF RANGE REFERENCE UNITS LAB L100.1000 4.4-11.0 K/mm3 High WBC 11.4 LAB L100.1200 4.2-5.4 M/mm3 Low RBC 3.38 LAB L100.1300 12.0-15.0 g/dl Low HGB 10.0 LAB L100.1400 37-47 % Low HCT 31.3 LAB L100.1500 81-99 fL Normal MCV 92.6 LAB L100.1600 27.0-32.0 pg Normal MCH 29.6 LAB L100.1700 32-36 g/gl Low MCHC 31.9 LAB L100.1810 11.6-14.6 % Normal RDW CV 13.8 LAB L100.1820 35.1-43.9 fl High RDW SD 45.6 LAB L100.1900 150-450 K/mm3 Normal PLT 223 LAB L100.2000 6.2-12.0 fl Normal MPV 10.9 Performed By: #### L100.0500 #### [facility] [address] [place], [place], [address] BASIC METABOLIC Collected: 02/21/2018 Status: F Source: [place] PROFILE (BMP) 5:23 AM [facility] REPOSITORY TYPE CODE TESTS RESULT OUT OF RANGE REFERENCE UNITS LAB L501.0100 74-106 mg/dL High GLU 111 Result Comment: Fasting Glucose result from 100 to 125 mg/dL suggests IMPAIRED HOMEOSTASIS per A.D.A. criteria. Please note revised GLUCOSE reference range effective 2017. LAB L501.1000 7-18 mg/dL High BUN 19 LAB L501.1100 0.55-1.02 mg/dL Normal CREAT,SERUM 0.70 Result Comment: The validity of the calculated GFR AND GFRAA in patients over 70 years has not been determined. Clinical correlation is essential. LAB L501.1110 >60 mL/min Normal EST GFR 88 Result Comment: Non- GFR Calc LAB L501.1115 >60 mL/min Normal EST GFR - AA 106 Result Comment: GFR Calc LAB L501.1255 ml/min Normal Estimated CRCL 47.60 LAB L501.1300 10-20 RATIO High BUN/CRE 27.2 LAB L501.2200 8.5-10 mg/dL Normal .1 CA 8.6 LAB L501.5300 136-14 mmol/L Normal 5 NA 142 LAB L501.5600 3.5-5. mmol/L Normal 1 K 4.5 LAB L501.5900 98-107 mmol/L Normal CL 105 LAB L501.6100 21.0-3 mmol/L Normal 2.0 CO2 27.0 LAB L501.6200 5-15 Normal GAP 10 Performed By: #### L500.2500 #### [facility] [address] [place], [address] CONSULTATION Observed: 02/20/2018 Status: F Source: [place] 3:30 PM [facility] REPOSITORY [facility] Medical Records Department [address] [place] [address] Consultation 02/20/18 1129 MR#: [id number] Acct: [id number] Name: TONEY ROGER Rep #: [id number] : 1945 72 From: Denia Wang PCP: Duncan Christianson MD Status: ADM IN Y [facility] Problem List (1) Acute respiratory failure with hypoxia Status: Acute (2) Osteoarthritis Status: Chronic Qualifiers: Osteoarthritis location: hip Osteoarthritis type: unspecified Laterality: left Qualified Code(s): M16.12 - Unilateral primary osteoarthritis, left hip (3) Depression Status: Chronic Qualifiers: Depression Type: unspecified Qualified Code(s): F32.9 - Major depressive disorder, single episode, unspecified (4) Morbid obesity Status: Chronic (5) HTN (hypertension) Status: Chronic Qualifiers: Hypertension type: essential hypertension Qualified Code(s): I10 - Essential (primary) hypertension Reason for Consult Date of Consultation: 02/20/18 Reason for Consultation: Medical consultation, RAPID RESPONSE History of Present Illness: The patient is a 72 y/o F w/ PMHx: Morbid Obesity, SAM not using CPAP, HTN, Depression, Severe L Hip OA who presents to the [facility] on 02/20/18 for planned L THR per Dr. Flores secondary to failed conservative methods who post-operatively had notable pain in the PACU and was administered aggressive IV narcotic therapy with arrival to the floor and immediate unresponsive and hypoxic event with confirmed palpable pulse. Rapid Response immediately called. Narcan administered, RT assisted with patient oxygenation, initially 60s saturation on monitor with improvement into 100% with supplementation. Patient remained initially unresponsive despite narcan therefore prepared to give additional dose and intubation; however, patient awoke, began to breath on her own and slowly became more alert and at her baseline. Repeat assessments performed serially to assure no further narcan dosing needs unremarkable with transition to NC without issue. RAPID RESPONSE NOTE: Patient arrived at 1114 2 room from surgery with immediately obvious unresponsive status and hypoxic with no respiratory effort with pulse intact. TRACK WELDER immediately called with Ambu bag initiation on 100% with 3 person assist to assure appropriate airway and jaw thrust secondary to thickened neck and habitus. 0.4 mg Narcan administered and IV fluid bolus initiated. Oxygenation improved into 100% and prior to repeat dosing of Narcan and consideration of intubation patient's status improved, became alert and awake with stabilization of respiratory rate and improvement of effort. Patient transitioned to nonrebreather and eventually to nasal cannula 100%. Patient family present, son who is healthcare power of computing tutor and updated on condition. TRACK WELDER Initial Physical Examination: General: does not awaken to sternal rub, not alert, unable to answer orientation questions, in respiratory failure. Skin: normal color, turgor, no icterus, cyanosis, s/p L hip replacement, dressing in place, no drainage. HEENT: AT/NC, EOM unable to be assessed, pupils pinpoint, dry MM. Lungs: No respiratory effort, diminished BS, > bases, continued bagging, no wheezing. Heart: Mildly bradycardic with regular rhythm; no gallop, rub audible. Abdomen: soft, morbidly obese. Extremities: no cyanosis, clubbing, BL LE ankle edema, non- pitting, distal pulses intact. Neurological: does not awaken to sternal rub, not alert, unable to answer orientation questions, unable to assess CM, not moving extremities. Psychiatric: affect appears flat, unresponsive. Past Medical History Past Medical History (Chronic Problems): Chronic Problems Depression (Chronic) Morbid obesity (Chronic) Osteoarthritis (Chronic) HTN (hypertension) (Chronic) Allergies ciprofloxacin [From Cipro] Adverse Reaction (Verified 02/20/18 06:14) Other diphenhydramine [From Benadryl] Adverse Reaction (Verified 02/20/18 06:14) Other Sulfa (Sulfonamide Antibiotics) Adverse Reaction (Verified 02/20/18 06:14) Other tramadol Adverse Reaction (Verified 02/20/18 06:14) Other OFFICE CALLED PT - SAYS GETS DEPRESSED IF ON TOO LONG Home Medications: Ambulatory Orders Medication Instructions Recorded Surgical History: - - Hernia repair, hysterectomy w/ BLTL, tonsillectomy, gastric sleeve, right knee arthroscopic surgery, right total knee replacement, left total knee replacement, cholecystectomy, bile duct intervention. 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 Denies: Chills, Fever, Weight Change HEENT: Denies: Head Aches, Sinus Congestion, Sinus Drainage Cardiovascular: Denies: Chest Pain, Palpitations Respiratory: Denies: Cough, Shortness of Breath, Shortness of breath at rest, Shortness of breath upon exertion, Sputum production Gastrointestinal: Denies: Abdominal Pain, Nausea, Vomiting Genitourinary: Denies: Dysuria Musculoskeletal: Reports: Joint stiffness, Joint swelling, Joint Tenderness, Leg Pain. Denies: Joint Pain Skin: Denies: Rash, Wounds Neurological: Denies: Numbness, Tingling, Focal weakness Psychiatric: Reports: Depression. Denies: Anxiety, Homicidal Ideations, Suicidal Ideations Hematologic/ Lymphatic: Denies: Easy Bruising, Easy Bleeding Comment: ROS obtained after clinical improvement. Patient Problems: Active and Suspected Problems Acute respiratory failure with hypoxia (Acute) Subjective: Patient seated upright in the bed, no acute distress, denies any dyspnea or chest discomfort given recent acute events, stabilized. Report discomfort but given mild hypotension and recent respiratory failure aggressive narcotic therapy descalated. Objective: FOLLOWING RESOLUTION OF ACUTE HYPOXIC RESPIRATORY FAILURE: Physical Examination: General: awake, alert, oriented x 3 and cooperative, seated upright in bed in no apparent distress. Skin: normal color, turgor, no icterus, cyanosis, s/p OR w/ L hip dressing in place, no drainage. HEENT: AT/NC, EOMI, pupils improved, no longer pinpoint/PERRLA, MMM, no carotid bruits or JVD noted. Lungs: Improved, diminished bases BL, moderate effort, appropriate RR, not using any accessory muscles, no wheezing, transitioned to NC currently. Heart: Mildly bradycardic with regular rhythm; no gallop, rub audible. Abdomen: soft, morbidly obese, NTTP, ND, normal BS, no HSM; however, habitus makes examination difficult. Extremities: no cyanosis, clubbing, s/p OR w/ L hip dressing in place. Neurological: patient awake, alert, oriented x 3; cognitive function intact; pupils equally reactive to light and accomodation; cranial nerves II-XII grossly normal, moving all 4 extremities although expected severe limitation LLE secondary to recent L THR, strength severely globally decreased secondary to recent intervention and acute presentation. Psychiatric: affect appears normal, mildly anxious regarding recent events, otherwise no acute evidence of depressive feelings. - Physical Exam Vital Signs Temp Pulse Resp BP Pulse Ox 97.6 F L 65 16 129/62 H 95 02/20/18 10:46 02/20/18 10:46 02/20/18 10:46 02/20/18 10:46 02/20/18 10:46 Oxygen Flow Rate (L/min) 4 Oxygen Delivery Method Room Air Weight: 265 lb 14.04 oz Body Mass Index (BMI) 42.9 Intake and Output for Last 24 Hours Intake Total 1200 / 1200 Balance 1200 / 1200 Assessment/Plan All Active Problems Acute respiratory failure with hypoxia (Acute) The patient is a 72 y/o F w/ PMHx: Morbid Obesity, SAM not using CPAP, HTN, Depression and Anxiety, Severe L Hip OA who presents to the [facility] on 02/20/18 for planned L THR per Dr. Flores secondary to failed conservative methods who post-operatively had notable pain in the PACU and was administered aggressive IV narcotic therapy with arrival to the floor and immediate unresponsive and hypoxic event. (1) Acute Hypoxic Respiratory Failure secondary to Recent Operative Anesthetics and Narcotic Therapy: As noted, rapid response called following transition from PACU to CA w/ immediately obvious unresponsive status and hypoxic with no respiratory effort with pulse intact. TRACK WELDER immediately called with Ambu bag initiation on 100% with 3 person assist to assure appropriate airway and jaw thrust secondary to thickened neck and habitus. 0.4 mg Narcan administered and IV fluid bolus initiated. Oxygenation improved into 100% and prior to repeat dosing of Narcan and consideration of intubation patient's status improved, became alert and awake with stabilization of respiratory rate and improvement of effort. Patient transitioned to nonrebreather and eventually to nasal cannula 100%. Discussed with Primary Service, Orthopedic Surgery and given clinical improvement, will maintain on MS on telemetry, continue close monitoring for further narcan needs, maintain on supplementation with wean as tolerated room air, ATC duoneb and PRN albuterol in the interim, HOB parameters, aggressive IS usage, CPAP q HS given SAM history, decrease IV pain regimen and encourage oral utilization, encourage OOB. Fall precautions, PT, OT, CM per Orthopedic surgery direction. (2) Severe Osteoarthritis, L Hip: Failed conservative therapies and treatments, admitted per Dr. Flores for planned L THR, post-operative pain management, bowel regimen, DVT Prophylaxis, PT/OT/CM per Orthopedic surgery discretion. (3) Morbid Obesity: Weight loss and lifestyle changes encouraged, nutrition consulted. (4) Depression and Anxiety: Continue home regimen, cautious with sedative regimen. (5) Hypertension: Home hydrochlorothiazide regimen. (6) SAM: CPAP q HS. (7) DVT prophylaxis: SCDs, ASA 81 mg BID per Orthopedic surgery discretion. (8) CODE status: Following events and patient stabilization, discussed status, confirmed HCPOA and Living will in place, she notes son is HCPOA, discussed CODE status at length including difference between FULL code, DNR-CCA and DNR-CC status and requested FULL CODE status. Advanced Care Planning Face to Face Time: 20 minutes. Critical Care Time: Patient evaluation, rapid response, treatment as noted and discussion with family required 60 additional minutes above patient consultation 70 minutes evaluation time. Code Visit Office Visits / Consults: 09674 IP Consult L5 Procedures: Other Procedure - See Report - Additional Hospitalist Billin x 1 (60 minutes) and 23714 Advanced Care Planning (20 minutes) 02/20/18 1530 <Electronically signed by Denia Wang > Date Denia Wang Cosigner Signature (if applicable): Date CC: Denia Wang; Duncan Christianson MD; Cecilio Flores MD Signed OPERATIVE REPORT Observed: 02/20/2018 Status: F Source: [place] 9:18 AM [facility] REPOSIT[facility] Medical Records Department [address] [place]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 XNORM) Repository CT) ENCOUNTERS ENCOUNTERS ADMIT/DISCHARGE ACCOUNT ADMITTING ENCOUNTER LOCATION SOURCE NUMBER CLASS 06/12/2018 [id number] Ambulatory [place] [facility] ing:SL Repository 06/05/2018 [id number] Ambulatory [facility] [facility] ing:LABSPEC Repository 06/05/2018 [id number] Ambulatory [facility] ing:MAMMO Repository 03/22/2018 [id number] Ambulatory [place] [address] [place] [address] ing:MFPLAB Repository 02/20/2018/ [id number] Sandra, [place]patient [place] [facility] ing:BQ4Wnpo: Repository MB421Uqw: 1 02/20/2018 [id number] Sandra, Ambulatory [facility]:B [place] 6 [facility]ilio MARQUEZ.[facility] Repository 02/20/2018 [id number] Sandra, Ambulatory BMSBuilding:B [place] 4 Cecilio MARQUEZ.[facility] Repository 02/20/2018 [id number] Sandra, Ambulatory BMSBuilding:B [place] 6 [facility]ilio MARQUEZ.[facility] Repository 02/08/2018 [id number] Ambulatory [place] [facility] ing:MFPLAB Repository 01/08/2018 [id number] Mega Ambulatory [place] [facility] 3 [facility] ing:SDC Repository 12/06/2017 [id number] Ambulatory [place] [facility] ing:MFPLAB Repository 11/29/2017 [id number] Ambulatory BMSBuilding:W [facility] Repository PAYERS PAYERS ENCOUNTER GUARANTOR PAYER SUBSCRIBER SOURCE 06/12/2018 TREVALYNNE Primary TREVALYNNE Yordycarlene REINOSO S Insurance:VANI PETERSONB: [address] Number: [id number] [address] [id number] Repository [address]Hle: ([phone]) Date:8078-78-44OM [phone] () [id number] [address]QI: 06/12/2018 Secondary NOT GIVENUNK [place] Insurance:SELF PAY [facility] Number: Effective Repository Date:2018-04-26 06/05/2018 TREVALYNNE Primary TREVALYNNE [place] [id number] Insurance:VANI PETERSONB: [address] Number: [id number] [id number] Repository [address]Jiy: [phone]) Date:2430-89-38FS [phone] () [id number] [address]HD: 06/05/2018 Secondary NOT GIVENUNK [place] Insurance:SELF PAY [facility] Number: Effective Repository Date:2018-06-05 06/05/2018 Trevalynne Primary Trevalynne [place] [id number] Insurance:VANI PetersonB: [address] [id number], Number: [address] Repository [place] [address]Whi: [id number] [id number], Date:9718-25-12[place] [address] () [id number] [address]AT: 06/05/2018 Secondary [place]NE [place] Insurance:SELF [facility] Number: Hospital Effective Repository Date:2018-05-06 03/22/2018 Trevalynne Primary Trevalynne [place] [id number] Insurance:VANI PetersonB: [address] Number: [id number] [facility] [address] [id number] Repository [address]Eaa: ([phone]) Date:9944-64-44IX [phone] (HP) [id number] [address]IM: 03/22/2018 Secondary NOT GIVENUNK [place] Insurance:SELF PAY [facility] Number: Effective Repository Date:2018-03-22 02/20/2018 Trevalynne Primary Trevalynne [place] [id number] Insurance:AETNA IsmaelDOB: [facility] Number: [id number]BH78MTEffective Repository [address]Oyq: [phone]) Date:2870-89-24OK [phone] (HP) [id number] [address]CS: 02/20/2018 Secondary NOT GIVENUNK [place] Insurance:SELF PAY [facility] Number: Effective Repository Date:2018-01-22 02/20/2018 Trevalynne Primary Trevalynne [place] [id number] S Insurance:AETNA KristenB: [address] Number: [id number] [id number] Repository [address]Atj: ([phone]) Date:6169-04-17FK [phone] (HP) [id number] [address]PV: 02/20/2018 Secondary NOT GIVENUNK [place] Insurance:SELF PAY [facility] Number: Effective Repository Date:2018-02-20 02/20/2018 Trevalynne Primary Trevalynne [place] [id number] S Insurance:AETNA IsmaelDOB: [address] Number: [id number] [id number] Repository [address]Tbq: ([phone]) Date:1140-83-81IX [phone] (HP) [id number] [place] [address]OU: 02/20/2018 Secondary NOT GIVENUNK [place] Insurance:SELF PAY [facility] Number: Effective Repository Date:2018-02-20 02/20/2018 Trevalynne Primary Trevalynne [place] [id number] Insurance:AETANDREA PetersonB: [facility] Number: [id number] [address] StreetBH78MTEffective Repository [address]Tkv: [phone]) Date:0453-79-89GW [phone] () [id number] [address]KJ: 02/20/2018 Secondary NOT GIVENUNK [place] Insurance:SELF PAY [facility] Number: Effective Repository Date:2018-02-20 02/08/2018 Trevalynne Primary Trevalynne [place] [id number] Insurance:AETANDREA PetersonB: [address] Number: [id number] [address] StreetBH78MTEffective Repository [address]Iqq: ([phone]) Date:6904-21-46KG [phone] () [id number] [address]RJ: 02/08/2018 Secondary NOT GIVENUNK [place] Insurance:SELF PAY [facility] Number: Effective Repository Date:2018-02-08 01/08/2018 Trevalynne Primary Trevalynne [place] [id number] S Insurance:AETANDREA PetersonB: [address] Number: [id number] [address] StreetBH78MTEffective Repository [address]Bep: ([phone]) Date:5774-84-81VW [phone] (HP) 946249WK[place] [address]YL: 01/08/2018 Secondary NOT GIVENUNK [place] Insurance:SELF PAY [facility] Number: Effective Repository Date:2017-07-25 12/06/2017 Trevalynne Primary Trevalynne [place] [id number] Insurance:AETNA KristenB: [address] Number: [id number] [address] StreetBH78MTEffective Repository [address]Qrx: [phone]) Date:5015-04-28CX [phone] () [id number] VIANEYHIMANSHU Teresa [address]RB: 12/06/2017 Secondary NOT GIVENUNK [place] Insurance:SELF PAY [facility] Number: Effective Repository Date:2017-12-06 11/29/2017 Trevalynne Primary [place]ne [place] Reinoso S Insurance:AETNA KristenB: [facility] Number: [id number] [address], [place] [id number] Repository [address]Zfn: [phone]) Date:2347-79-78HE [phone] () [id number] PASHIMANSHU Teresa [address]GN: 11/29/2017 Secondary NOT GIVENUNK [place] Insurance:SELF PAY [facility] Number: Effective Repository Date:2017-11-29
== END ==
PROVIDERS: Family Provider Family Medicine; PCP Family Medicine; Visit Provider Family Medicine
DX: R30.0 Dysuria (principal)
CPT/HCPCS: 87086; 87088; 87186

== ENCOUNTER → 2018-06-12 20:27 | Outpatient (CLI) | payer MEDICARE, SELFPAY | PROVIDERS: Family Provider Family Medicine; PCP Family Medicine | DX: G47.33 Obstructive sleep apnea (adult) (pediatric) (principal); G47.10 Hypersomnia, unspecified; R06.83 Snoring | CPT/HCPCS: 95810 ==

== ENCOUNTER → 2018-08-27 23:15 | Outpatient (CLI) | payer MEDICARE, SELFPAY | PROVIDERS: Family Provider Family Medicine; PCP Family Medicine; Referring Provider Registered Nurse; Visit Provider Registered Nurse | DX: G47.33 Obstructive sleep apnea (adult) (pediatric) (principal) | CPT/HCPCS: 95811 ==

== ENCOUNTER → 2019-03-19 15:50 | Outpatient (CLI) | payer MEDICARE, SELFPAY ==
[2018-02-20 11:47] VITALS: BMI 42.9
== END ==
PROVIDERS: Family Provider Family Medicine; PCP Family Medicine; Referring Provider Family Medicine; Visit Provider Family Medicine
DX: N39.0 Urinary tract infection, site not specified (principal)
CPT/HCPCS: 87077; 87086; 87088; 87186

== ENCOUNTER → 2019-07-14 11:30 | Outpatient (CLI) | payer MEDICARE, SELFPAY ==
[2018-02-20 11:47] VITALS: BMI 42.9
[2019-07-14 13:53] LABS: Basophil# 0.06 X10^3/uL; Basophil% 0.8 % (0-1); Eosinophil# 0.22 X10^3/uL; Eosinophils% 3.1 % (0-5); Hematocrit 41.8 % (37-47); Hemoglobin 13.1 g/dL (12.0-15.0); Lymphocyte % 32.3 % (19-41); Mean Corp Hgb Conc 31.3 g/dL (32-36); Mean Corpuscular Hgb 28.2 pg (27.0-32.0); Mean Corpuscular Volume 90.1 fL (81-99); Mean Platelet Vol. 10.5 fl (6.2-12.0); Monocyte# 0.49 X10^3/uL; Monocyte% 6.9 % (0-10); NRBC Flagged by Analyzer 0 % (0-5); Neutrophil # 4.02 X10^3/uL (2.7-7.7); Neutrophil % 56.5 % (47-70); Platelet Count 302 K/mm3 (150-450); RBC Distribution Width CV 14.3 % (11.6-14.6); Red Blood Count 4.64 M/mm3 (4.2-5.4); White Blood Count 7.1 K/mm3 (4.4-11.0)
[2019-07-14 14:13] LABS: Vitamin D,25 Hydroxy 37.2 ng/mL (29.95-100.01)
[2019-07-14 14:14] LABS: Anion Gap 2 (5-15); BUN 14 mg/dL (7-18); BUN/Creat Ratio 16.5 RATIO (10-20); Calcium,Total 9.5 mg/dL (8.5-10.1); Chloride 102 mmol/L (98-107); Cholesterol 191 mg/dL (200); Creatinine, Serum 0.85 mg/dL (0.55-1.02); EST Glomerular Filtration Rate 70 mL/min (>60); Est Glom Filt Rate - Afr Amer 85 mL/min (>60); Glucose 82 mg/dL (74-106); High Density Lipoprotein 74 mg/dL; Potassium 3.5 mmol/L (3.5-5.1); Sodium Level 136 mmol/L (136-145); Thyroid Stim Hormone (TSH) 1.44 uIU/mL (0.358-3.74); Triglycerides 117 mg/dL; Very Low Density Lipoprotein 23 mg/dL (5-40)
== END ==
PROVIDERS: Family Provider Family Medicine; PCP Family Medicine; Visit Provider Family Medicine
DX: Z00.00 Encounter for general adult medical examination without abnormal findings (principal)
CPT/HCPCS: 36415; 80048; 80061; 82306; 84443; 85025

== ENCOUNTER → 2019-09-03 13:52 | Outpatient (CLI) | payer MEDICARE, SELFPAY ==
--- NOTE | 2019-09-03 13:56 | CT_ITS ---
STUDY: CT CHEST WITHOUT CONTRAST REASON FOR EXAM: Female, 73 [address]NORM[address], OUTSIDE IMAGES NO AVAILABLE, evaluate chest or abnormalities. RADIATION DOSAGE (If Supplied By Facility): CTDIvol = ( 15.64 ) mGy, DLP = ( 648.93 ) mGycm TECHNIQUE: Transaxial imaging was performed without the administration of intravenous contrast material. Individualized dose optimization techniques were used for this CT. COMPARISON: None. FINDINGS: Normal aeration of the lungs. No consolidation or pleural effusion or pulmonary edema. No lung nodules. There is no demonstrated pleural abnormality. Normal heart size and pericardium. Normal mediastinum. Normal hilar regions. Normal unenhanced pulmonary arteries. There is atherosclerotic calcification of the aortic arch with tortuosity and elongation of the aortic arch and descending thoracic aorta. There are multi-level degenerative changes of the thoracic spine. Colonic diverticula noted. Suture material is seen in the wall of the stomach near the GE junction. A small hiatal hernia is present. There is no demonstrated acute or significant process abnormality of the visualized upper abdomen. CT/Chest without Contrast IMPRESSION: 1. Normal aeration of the lungs. No consolidation or pleural effusion or pulmonary edema. No lung nodules. There is no demonstrated pleural abnormality. Electronically Signed: Tomasz Hernandez MD at 15:51 EST , Service support ,
== END ==
PROVIDERS: PCP Family Medicine; Referring Provider Family Medicine; Visit Provider Family Medicine
DX: R93.89 Abnormal findings on diagnostic imaging of other specified body structures (principal)
CPT/HCPCS: 71250

== ENCOUNTER → 2020-07-29 09:52 | Outpatient (CLI) | payer MEDICARE, SELFPAY ==
[2018-02-20 11:47] VITALS: BMI 42.9
[2020-07-29 12:39] LABS: Anion Gap 3 (5-15); BUN 16 mg/dL (7-18); BUN/Creat Ratio 17.3 RATIO (10-20); Calcium,Total 10.1 mg/dL (8.5-10.1); Chloride 104 mmol/L (98-107); Cholesterol 193 mg/dL (200); Creatinine, Serum 0.92 mg/dL (0.55-1.02); EST Glomerular Filtration Rate 63 mL/min (>60); Est Glom Filt Rate - Afr Amer 76 mL/min (>60); Glucose 75 mg/dL (74-106); High Density Lipoprotein 72 mg/dL; Potassium 3.9 mmol/L (3.5-5.1); Sodium Level 138 mmol/L (136-145); Triglycerides 133 mg/dL; Very Low Density Lipoprotein 27 mg/dL (5-40)
== END ==
PROVIDERS: PCP Family Medicine; Referring Provider Family Medicine; Visit Provider Family Medicine
DX: I10 Essential (primary) hypertension (principal)
CPT/HCPCS: 36415; 80048; 80061

== ENCOUNTER → 2020-11-15 | Outpatient (CLI) | payer MEDICARE, SELFPAY ==
[2018-02-20 11:47] VITALS: BMI 42.9
== END | disposition home or self-care (01) ==
LOC: LABSPEC 15:46
PROVIDERS: PCP Family Medicine; Referring Provider Family Medicine; Visit Provider Family Medicine
DX: R31.9 Hematuria, unspecified (principal)
CPT/HCPCS: 87086; 87088; 87186

== ENCOUNTER → 2021-01-24 14:39 | Outpatient (CLI) | payer MEDICARE, SELFPAY ==
--- NOTE | 2021-01-24 14:42 | CT_ITS ---
STUDY: CT ABDOMEN AND PELVIS WITH AND WITHOUT CONTRAST REASON FOR EXAM: Female, 75 years old. Gross hematuria. RADIATION DOSAGE (If Supplied By Facility): CTDIvol = ( 26.01 ) mGy, DLP = ( 4433.17 ) mGycm TECHNIQUE: Transaxial images were obtained from the dome of the diaphragm to the symphysis pubis without oral contrast. [id number] 100ML was administered. Sagittal and coronal images were reconstructed. Individualized dose optimization techniques were used for this CT. COMPARISON: 05/26/2017 FINDINGS: The visualized lung bases are unremarkable. The visualized portions of the heart are within normal limits. Normal liver. There are surgical clips in the gallbladder fossa consistent with a prior cholecystectomy. There is a benign calcified granuloma of the spleen. Normal pancreas. Normal bilateral adrenal glands. Normal right kidney. Normal left kidney. Normal bilateral ureter Small hiatal hernia. There is evidence of gastric sleeve procedure. Normal small intestine. There is colonic diverticulosis without acute inflammatory change. There is non-visualization of the appendix. There is diffuse atherosclerotic calcification of the abdominal aorta, without a demonstrated aneurysm. Normal inferior vena cava. Normal retroperitoneum. The bladder is nondistended. Unremarkable vaginal cuff. No pelvic lymphadenopathy. No free air or free fluid is seen within the peritoneal cavity Normal abdominal wall. There are diffuse degenerative changes of the visualized lumbar spine. CT/CT Abd/Pelvis W/WO Contrast IMPRESSION: 1. No evidence of renal, ureteral or urinary bladder abnormality. 2. Scattered diverticulosis without acute inflammatory change. 3. Gastric Sleeve procedure with small hiatal hernia. 4. No major interval change when compared to the prior exam. Electronically Signed: Froy Aguilera DO at 18:22 EDT Tel [phone], Service support ,
[2021-01-24 14:55] LABS: CREATININE FINGERSTICK 0.8 mg/dL (0.55-1.02); EGFR FINGERSTICK > 60.0000 mL/min (>60)
== END ==
PROVIDERS: PCP Family Medicine; Referring Provider Urology; Visit Provider Urology
DX: R31.0 Gross hematuria (principal)
CPT/HCPCS: 74178; Q9967

== ENCOUNTER 2021-02-01 08:59 | Day surgery (SDC) | payer MEDICARE, SELFPAY ==
--- NOTE | 2021-02-01 09:10 | OP.PCM_ITS ---
Problems Associated Problem List Diagnoses (1) Gross hematuria: (2) Urinary tract infection: (3) Other urethral stricture, female: Report of Operation Date of Procedure: 02/01/21 Pre-Operative Diagnosis: Gross hematuria, urinary tract infection, urethral stricture Post-Operative Diagnosis: Same Surgery/Procedure Performed:: Urethral dilation, cystoscopy Surgeon: Crystal Miller Type of Anesthesia: MAC Description of Procedure: The patient is a 75-year-old female who developed gross hematuria not necessarily associated with a urinary tract infection, and has had issues with urinary tract infection. She now presents for evaluation under anesthesia as a cystoscopy in the office was unable to be performed secondary to urethral stricture. Informed consent was obtained. The patient was taken the operating room placed on the operating room table. Anesthesia monitored the head, neck, airway, IV access and vital signs throughout the case. Once anesthesia was appropriately ministered the patient was prepped and draped in usual sterile fashion. At this time the urethra was dilated with urethral sounds starting at [address] all the way up to 24 Congolese without difficulty. The cystoscope was then easily inserted through the urethra into the urinary bladder under direct visualization. The ureteral orifices were located in a medial position on the trigone. The remainder of the bladder mucosa was visualized in its entirety.There was diffuse cystitis cystitca without areas of erythema, mass or foreign body. The patient's bladder was then emptied and the case was terminated. She was taken to the recovery room in good condition. There were no complications during this procedure. Grafts/Implants Used: none Complications none Admit VTE Documentation VTE Present on Admission: Yes VTE Mechan Device Prophylaxis: SCD's VTE Pharm Prophylaxis ordered?: No Reason prophylaxis not ordered:: Treatment Not Indicated
--- NOTE | 2021-02-01 09:13 | PCM.DC ---
Discharge Instructions Diet Discharge Diet: No restrictions Activity Discharge Activity: Return to Normal Activity Dressing / Incision Call your doctor if your incision/area has: Continuous Slow Oozing and Sudden Increased Bleeding Call your doctor if you observe: Fever of 101 or Higher, Inability to urinate, Inability to have a bowel movement, Calf discomfort and Uncontrolled pain Follow Up Care Please Follow Up With: Crystal Miller MD When: call for appt to be seen in 2-3 weeks Test Results: Test results from this visit will be discussed in further detail at your follow-up appointment, if applicable. Discharge Plan Admission Attending Provider: Crystal Miller Primary Care Provider: Duncan Christianson Discharge Orders/Prescriptions Prescriptions: New cephalexin [cephalexin] 500 MG capsule 500 mg PO Q12 3 Days Qty: 6 RF: 0 phenazopyridine [Pyridium] 200 MG tablet 200 mg PO TID PRN PRN (Reason: Bladder Spasms) 7 Days Qty: 10 RF: 0 Continued cyanocobalamin (vitamin B-12) [Vitamin B-12] 500 MCG tablet 5,000 mcg PO DAILY RF: 0 cholecalciferol (vitamin D3) [Vitamin D3] 1,000 UNIT capsule 1,000 unit PO DAILY RF: 0 calcium carbonate-vitamin D3 [Calcium 500 + D] 1 EACH tablet,chewable 500 mg PO DAILY RF: 0 Centrum 1 EACH tablet 1 tab PO DAILY RF: 0 Trintellix 10 MG tablet 20 mg PO DAILY RF: 0 hydrochlorothiazide 25 MG tablet 25 mg PO DAILY RF: 0 buspirone 15 mg Tablet 15 mg PO BID RF: 0 bupropion HCl [Wellbutrin XL] 300 mg Tablet Extended Release 24 Hr 300 mg PO DAILY RF: 0 Ingrezza 40 mg Capsule 40 mg PO DAILY RF: 0 Referrals / Follow Up: Duncan Christianson MD [Primary Care Provider] - Disposition Disposition (needs filled in before D/C Order can be placed): Home, Self Care
[2021-02-01] MEDS: Lactated Ringers 1,000 ML 100 ML IV (09:15)
[2021-02-01 09:37] VITALS: BP 155/86; PULSE 59; RESP 16; TEMP 36.1; O2SAT 96; BMI 93.6
[2021-02-01 09:41] LABS: Hematocrit 44.5 % (37-47); Mean Corp Hgb Conc 31.5 g/dL (32-36); Mean Corpuscular Hgb 29.1 pg (27.0-32.0); Mean Corpuscular Volume 92.5 fL (81-99); Platelet Count 301 K/mm3 (150-450); RBC Distribution Width CV 13.6 % (11.6-14.6); RBC Distribution Width SD 46.7 fl (35.1-43.9); Red Blood Count 4.81 M/mm3 (4.2-5.4); White Blood Count 8.2 K/mm3 (4.4-11.0)
[2021-02-01 10:17] VITALS: BMI 42.4
[2021-02-01 10:27] LABS: Anion Gap 6 (5-15); BUN 21 mg/dL (7-18); BUN/Creat Ratio 22.4 RATIO (10-20); Chloride 103 mmol/L (98-107); Creatinine, Serum 0.94 mg/dL (0.55-1.02); EST Glomerular Filtration Rate 62 mL/min (>60); Est Glom Filt Rate - Afr Amer 75 mL/min (>60); Estimated Creatinine Clearance 48.41 ml/min; Glucose 93 mg/dL (74-106); Potassium 3.5 mmol/L (3.5-5.1); Sodium Level 140 mmol/L (136-145)
[2021-02-01] MEDS: Cefazolin 2 GM in 0.9% Normal Saline 100 ML IV (11:00)
[2021-02-01 11:33] VITALS: BP 120/66; BP 155/86; PULSE 55; RESP 16; TEMP 36.7; O2SAT 99
[2021-02-01 11:38] VITALS: BP 102/58; BP 155/86; PULSE 53; RESP 16; O2SAT 96
[2021-02-01 11:43] VITALS: BP 107/60; BP 155/86; PULSE 55; RESP 16; O2SAT 94
[2021-02-01 11:48] VITALS: BP 119/53; BP 155/86; PULSE 55; RESP 16; TEMP 36.7; O2SAT 95
[2021-02-01 13:00] VITALS: BP 127/57; BP 155/86; PULSE 58; RESP 16; TEMP 36.3; O2SAT 98
== END 2021-02-01 13:05 | disposition home or self-care (01) ==
LOC: SDC 09:01 → AC 09:02
PROVIDERS: Anesthesiology; PCP Family Medicine; Referring Provider Urology; Visit Provider Urology
PROC: 0T7D8ZZ Dilation of Urethra, Via Natural or Artificial Opening Endoscopic (ICD-10-PCS; CPT 52281; principal; 2021-02-01 10:45)
DX: N35.82 Other urethral stricture, female (principal); N39.0 Urinary tract infection, site not specified; R31.0 Gross hematuria; I10 Essential (primary) hypertension; F41.9 Anxiety disorder, unspecified; F32.9 Major depressive disorder, single episode, unspecified; H91.90 Unspecified hearing loss, unspecified ear; M19.90 Unspecified osteoarthritis, unspecified site; G24.01 Drug induced subacute dyskinesia; Z86.2 Personal history of diseases of the blood and blood-forming organs and certain disorders involving the immune mechanism; Z87.19 Personal history of other diseases of the digestive system; Z79.899 Other long term (current) drug therapy
CPT/HCPCS: 00910; 52281; 80048; 85027; J7120; J2405

== ENCOUNTER → 2021-03-21 15:53 | Outpatient (CLI) | payer MEDICARE, SELFPAY ==
[2021-03-21 18:22] LABS: Anion Gap 7 (5-15); BUN 16 mg/dL (7-18); BUN/Creat Ratio 14.3 RATIO (10-20); Calcium,Total 10.3 mg/dL (8.5-10.1); Chloride 103 mmol/L (98-107); Cholesterol 191 mg/dL (200); Creatinine, Serum 1.12 mg/dL (0.55-1.02); EST Glomerular Filtration Rate 50 mL/min (>60); Est Glom Filt Rate - Afr Amer 61 mL/min (>60); Glucose 96 mg/dL (74-106); High Density Lipoprotein 77 mg/dL; Sodium Level 140 mmol/L (136-145); Triglycerides 81 mg/dL; Very Low Density Lipoprotein 16 mg/dL (5-40)
== END ==
PROVIDERS: PCP Family Medicine; Referring Provider Family Medicine; Visit Provider Family Medicine
DX: I10 Essential (primary) hypertension (principal)
CPT/HCPCS: 36415; 80048; 80061

== ENCOUNTER → 2021-06-29 | Outpatient (CLI) | payer MEDICARE, SELFPAY | END | disposition home or self-care (01) | LOC: LABSPEC 14:46 | PROVIDERS: PCP Family Medicine; Referring Provider Family Medicine; Visit Provider Family Medicine | DX: N39.0 Urinary tract infection, site not specified (principal) | CPT/HCPCS: 87077; 87086; 87088; 87186 ==

== ENCOUNTER → 2022-08-30 | Outpatient (CLI) | payer MEDICARE, SELFPAY ==
[2022-08-30 13:07] LABS: Absolute Lymphocyte Count 2.19 X10^3/uL (0.83-4.51); Absolute Neutrophil Count 4.1 X10^3/uL (2.0-7.7); Basophil% 1.4 % (0-1); Eosinophil# 0.22 X10^3/uL; Eosinophils% 3.1 % (0-5); Hematocrit 41.8 % (37-47); Hemoglobin 13.3 g/dL (12.0-15.0); Lymphocyte # 2.19 X10^3/ul (0.83-4.51); Lymphocyte % 31.2 % (19-41); Mean Corp Hgb Conc 31.8 g/dL (32-36); Mean Corpuscular Hgb 30.2 pg (27.0-32.0); Mean Platelet Vol. 10.8 fl (6.2-12.0); Monocyte# 0.39 X10^3/uL; Monocyte% 5.5 % (0-10); NRBC Flagged by Analyzer 0 % (0-5); Neutrophil # 4.11 X10^3/uL (2.7-7.7); Neutrophil % 58.5 % (47-70); Platelet Count 322 K/mm3 (150-450); RBC Distribution Width CV 13.5 % (11.6-14.6); RBC Distribution Width SD 47.4 fl (35.1-43.9)
[2022-08-30 14:48] LABS: Albumin, Serum 3.9 g/dL (3.2-5.0); Anion Gap 9 (5-15); BUN 16 mg/dL (7-18); Calcium,Total 10.3 mg/dL (8.5-10.1); Chloride 104 mmol/L (98-107); Creatinine, Serum 1.07 mg/dL (0.55-1.02); EST Glomerular Filtration Rate 53 mL/min (>60); Est Glom Filt Rate - Afr Amer 64 mL/min (>60); Glucose 107 mg/dL (74-106); Potassium 3.5 mmol/L (3.5-5.1); Sodium Level 141 mmol/L (136-145)
== END | disposition home or self-care (01) ==
LOC: LAB 11:17
PROVIDERS: PCP Family Medicine; Referring Provider Specialist; Visit Provider Specialist
DX: M16.11 Unilateral primary osteoarthritis, right hip (principal); D64.9 Anemia, unspecified
CPT/HCPCS: 36415; 80048; 82040; 85025

== ENCOUNTER → 2022-11-24 | Outpatient (CLI) | payer MEDICARE, SELFPAY ==
[2022-11-24 10:17] LABS: Absolute Lymphocyte Count 1.71 X10^3/uL (0.83-4.51); Absolute Neutrophil Count 2.9 X10^3/uL (2.0-7.7); Basophil# 0.08 X10^3/uL; Basophil% 1.5 % (0-1); Eosinophil# 0.31 X10^3/uL; Eosinophils% 5.7 % (0-5); Hematocrit 39.3 % (37-47); Hemoglobin 12.1 g/dL (12.0-15.0); Lymphocyte # 1.71 X10^3/ul (0.83-4.51); Lymphocyte % 31.7 % (19-41); Mean Corp Hgb Conc 30.8 g/dL (32-36); Mean Corpuscular Hgb 29.5 pg (27.0-32.0); Mean Corpuscular Volume 95.9 fL (81-99); Mean Platelet Vol. 10.7 fl (6.2-12.0); Monocyte# 0.41 X10^3/uL; Monocyte% 7.6 % (0-10); NRBC Flagged by Analyzer 0 % (0-5); Neutrophil # 2.88 X10^3/uL (2.7-7.7); Neutrophil % 53.3 % (47-70); Platelet Count 269 K/mm3 (150-450); RBC Distribution Width CV 13.2 % (11.6-14.6); RBC Distribution Width SD 46.6 fl (35.1-43.9); White Blood Count 5.4 K/mm3 (4.4-11.0)
[2022-11-24 10:31] LABS: ALB/GLOB Ratio 1.1 RATIO (0.9-2.4); AST(SGOT) 15 U/L (15-37); Alanine Aminotransfer ALT/SGPT 18 U/L (13-56); Albumin, Serum 3.6 g/dL (3.2-5.0); Alkaline Phosphatase 103 U/L (45-117); Anion Gap 6 (5-15); BUN 21 mg/dL (7-18); BUN/Creat Ratio 23.9 RATIO (10-20); Calcium,Total 9.7 mg/dL (8.5-10.1); Chloride 106 mmol/L (98-107); Cholesterol 161 mg/dL (200); Creatinine, Serum 0.88 mg/dL (0.55-1.02); EST Glomerular Filtration Rate 66 mL/min (>60); Est Glom Filt Rate - Afr Amer 80 mL/min (>60); Globulin 3.4 g/dL (2.2-4.2); Glucose 87 mg/dL (74-106); High Density Lipoprotein 76 mg/dL; Potassium 3.8 mmol/L (3.5-5.1); Sodium Level 142 mmol/L (136-145); Triglycerides 120 mg/dL; Very Low Density Lipoprotein 24 mg/dL (5-40)
[2022-11-24 10:33] LABS: Vitamin D,25 Hydroxy 52.7 ng/mL
== END | disposition home or self-care (01) ==
LOC: MFPLAB 08:59
PROVIDERS: PCP Family Medicine; Visit Provider Family Medicine
DX: D64.9 Anemia, unspecified (principal); E66.01 Morbid (severe) obesity due to excess calories; E55.9 Vitamin D deficiency, unspecified
CPT/HCPCS: 36415; 80053; 80061; 82306; 85025